=== PATIENT | female | born 1965 | race Caucasian/White ===

== ENCOUNTER → 2017-12-02 12:09 | Outpatient (CLI) | payer BC, SELFPAY ==
--- NOTE | 2017-12-02 12:13 | US_ITS ---
STUDY: RENAL ULTRASOUND - COMPLETE REASON FOR EXAM: Female, 52 years old. Atrophy of the right kidney. TECHNIQUE: Ultrasound evaluation of the kidneys was performed with real-time and static mendoza-scale imaging. COMPARISON: Comparison is made with prior examination dated April 29, 2016. FINDINGS: RIGHT KIDNEY: with moderate renal atrophy. The right kidney measures 5.8 cm x 2.9 cm x 2.5 cm. There is diffuse thinning of the renal cortex. The renal cortex measures 0.8 cm. There is no right renal mass or cyst. There are no right renal calculi. There is no right hydronephrosis. DISTAL RIGHT URETER: There is non-visualization of the distal right ureter. There is no demonstrated right ureterovesical junction calculus. There is no demonstrated right ureteral jet. LEFT KIDNEY: Normal location of the left kidney, which is normal in size. The left kidney measures 11.3 cm x 4.6 cm x 5.2 cm. There is a normal cortex of the left kidney. The renal cortex measures 2.0 cm. There is no left renal mass or cyst. There are no left renal calculi. There is no left hydronephrosis. DISTAL LEFT URETER: There is non-visualization of the distal left ureter. There is no demonstrated left ureterovesical junction calculus. There is no demonstrated left ureteral jet. BLADDER: The bladder is empty at the time of the examination. US/Kidney and Bladder IMPRESSION: Stable atrophy of the right kidney. The left kidney is unremarkable. Electronically Signed: Maurilio Cornejo MD at 13:47 EDT Tel [phone], Service support ,
== END ==
PROVIDERS: Visit Provider Urology
DX: N28.9 Disorder of kidney and ureter, unspecified (principal)
CPT/HCPCS: 76770

== ENCOUNTER → 2018-04-22 10:22 | Outpatient (CLI) | payer BC, SELFPAY ==
--- NOTE | 2018-04-22 10:32 | CT_ITS ---
STUDY: CT SOFT TISSUE NECK WITHOUT CONTRAST REASON FOR EXAM: Female, 53 years old. Lump on the left side of the neck. RADIATION DOSAGE (If Supplied By Facility): CTDIvol = ( 18.51 ) mGy, DLP = ( 568.65 ) mGycm TECHNIQUE: The patient was scanned in a multi-detector CT scanner. High resolution transaxial imaging was performed without the administration of intravenous contrast material. Sagittal and coronal images were reconstructed. Individualized dose optimization techniques were used for this CT. COMPARISON: None. FINDINGS: Normal bilateral parotid glands. Normal bilateral armament repairer spaces. Normal bilateral parapharyngeal spaces. Normal bilateral carotid spaces. Normal bilateral sublingual and submandibular glands and spaces. Normal visualized nasopharynx. Normal retropharyngeal space. Normal perivertebral space. Normal visualized bilateral faucial tonsils. The visualized tongue, tongue base and oropharynx are normal. There are minimally enlarged lymph nodes of the neck, with preservation of normal amol architecture, consistent with a reactive lymph hyperplasia. There is no demonstrated solid or cystic mass lesion. Normal epiglottis, bilateral vallecula and hypopharynx. The pre-epiglottic and paraglottic adipose spaces are normal. Normal visualized bilateral piriform sinuses, aryepiglottic folds, vocal cords, and arytenoid-cricoid articulations. Normal subglottic trachea. Normal bilateral lobes of the thyroid gland. Normal visualized pulmonary apices. Minimal mucosal thickening of the left ethmoid sinus. Mild degree of this space narrowing at the C6-C7 C7-T1 CT/Soft Tissue Neck without Contr IMPRESSION: No acute abnormality is seen. Electronically Signed: Maurilio Cornejo MD at 12:26 EDT Tel [phone], Service support ,
== END ==
DX: R22.1 Localized swelling, mass and lump, neck (principal)
CPT/HCPCS: 70490

== ENCOUNTER → 2018-06-18 08:52 | Outpatient (CLI) | payer BC, SELFPAY ==
--- NOTE | 2018-06-18 08:55 | BI_ITS ---
MAMMOGRAPHY - BILATERAL SCREENING REASON FOR EXAM: Female, 53 years old. Routine annual screening examination. PERTINENT HISTORY: Aunts with breast cancer. Bilateral breast implants. TECHNIQUE: Digital bilateral breast tano (3D mammographic acquisition) in the CC and MLO projections. 2-D mediolateral oblique (MLO) and craniocaudad (CC) views of both breasts were obtained. CAD: Full Field Digital Mammography with Computer Added Detection was performed. COMPARISON: Comparison is made with prior study dated February 17, 2017 and November 06, 2015. FINDINGS: Breast Composition: The breasts are heterogeneously dense, which may obscure small masses. There are no dominant masses or suspicious calcifications. Stable appearance of the bilateral breast implants. Stable appearance of the small bilateral benign appearing axillary lymph nodes. No other significant abnormalities are identified. There has been no significant change since the prior study. BI/SCREENING MAMM (CAD), BILAT IMPRESSION: Stable bilateral screening mammogram. Yearly follow-up mammogram recommended. (A) ASSESSMENT CATEGORY: BIRADS Category 2: Benign. A letter regarding these results will be sent to the patient by the facility within 30 days. Approximately 10% of breast cancers are not detected by mammography. A normal mammogram should not delay biopsy of a clinically suspicious abnormality. [id number] Electronically Signed: Maurilio Cornejo MD at 8:09 EST Tel [phone], Service support ,
== END ==
DX: Z12.31 Encounter for screening mammogram for malignant neoplasm of breast (principal)
CPT/HCPCS: 77063; 77067

== ENCOUNTER → 2019-01-12 | Outpatient (CLI) | payer BC, SELFPAY ==
[2019-01-20 17:00] LABS: HPV Reflexed? NOT INDICATED
== END | disposition home or self-care (01) ==
LOC: LABSPEC 15:24
PROVIDERS: Visit Provider Obstetrics & Gynecology
DX: Z12.4 Encounter for screening for malignant neoplasm of cervix (principal)
CPT/HCPCS: 88175; G0145

== ENCOUNTER → 2020-02-15 | Outpatient (CLI) | payer BC, SELFPAY ==
--- NOTE | 2020-02-15 13:46 | BI_ITS ---
MAMMOGRAPHY - BILATERAL SCREENING REASON FOR EXAM: Female, 55 years old. Routine annual screening examination. PERTINENT HISTORY: Aunts with breast cancer. TECHNIQUE: Digital bilateral breast david (3D mammographic acquisition) in the CC and MLO projections. 2-D mediolateral oblique (MLO) and craniocaudad (CC) views of both breasts were obtained. CAD: Full Field Digital Mammography with Computer Added Detection was performed. COMPARISON: Comparison is made with prior study dated 06-18-18 and 02-17-17. FINDINGS: Breast Composition: The breasts are heterogeneously dense, which may obscure small masses. There are no dominant masses or suspicious calcifications. Stable appearance of the bilateral breast implants. Stable small benign appearing bilateral axillary lymph nodes. No other significant abnormalities are identified. There has been no significant change since the prior study. BI/SCREEN MAMM (CAD) W/DAVID BILAT IMPRESSION: Stable bilateral screening mammogram. Yearly follow-up mammogram recommended. (A) ASSESSMENT CATEGORY: BIRADS Category 2: Benign. A letter regarding these results will be sent to the patient by the facility within 30 days. Approximately 10% of breast cancers are not detected by mammography. A normal mammogram should not delay biopsy of a clinically suspicious abnormality. [id number] Electronically Signed: Maurilio Cornejo, at 8:22 EDT , Service support ,
[2020-02-15 17:05] LABS: Probe Check PASS; Sample Adequacy Control PASS; Specimen Processing Control PASS; Trichomonas Vag DNA by PCR Negative (Negative)
[2020-02-15 17:23] LABS: Chlamydia Trachomatis by PCR Negative (Negative); Neisserai gonorrhoeae by PCR Negative (Negative); Probe Check PASS; Sample Adequacy Control PASS; Specimen Processing Control PASS
[2020-02-16 02:25] LABS: Rapid Plasmin Reagin (RPR) NONREACTIVE (NONREACTIVE)
[2020-02-16 10:15] LABS: HIV - WCH Non-Reactive (Nonreactive); Hepatitis C Antibody Non-Reactive (Nonreactive)
== END | disposition home or self-care (01) ==
LOC: OPBI 13:45 → LABSPEC 13:46
PROVIDERS: Referring Provider Obstetrics & Gynecology; Visit Provider Obstetrics & Gynecology
DX: Z12.31 Encounter for screening mammogram for malignant neoplasm of breast (principal); Z11.3 Encounter for screening for infections with a predominantly sexual mode of transmission
CPT/HCPCS: 77063; 77067; 86592; 86703; 86803; 87491; 87591; 87661

== ENCOUNTER → 2021-02-19 12:46 | Outpatient (CLI) | payer BC, SELFPAY ==
--- NOTE | 2021-02-19 12:53 | BI_ITS ---
MAMMOGRAPHY - BILATERAL SCREENING REASON FOR EXAM: Female, 56 years old. Routine annual screening examination. PERTINENT HISTORY: Aunts with breast cancer. TECHNIQUE: Digital bilateral breast david (3D mammographic acquisition) in the CC and MLO projections. 2-D mediolateral oblique (MLO) and craniocaudad (CC) views of both breasts were obtained. CAD: Full Field Digital Mammography with Computer Added Detection was performed. COMPARISON: Comparison is made with prior study dated 02/15/2020 and 06/18/2018. FINDINGS: Breast Composition: The breasts are heterogeneously dense, which may obscure small masses. There are no dominant masses or suspicious calcifications. Stable appearance of the bilateral breast implants. Stable small benign-appearing bilateral axillary lymph nodes. No other significant abnormalities are identified. There has been no significant change since the prior study. BI/SCRN MAMM (CAD)W/DAVID BILAT IMPRESSION: Stable bilateral screening mammogram. Yearly follow-up mammogram recommended. (A) ASSESSMENT CATEGORY: BIRADS Category 2: Benign. A letter regarding these results will be sent to the patient by the facility within 30 days. Approximately 10% of breast cancers are not detected by mammography. A normal mammogram should not delay biopsy of a clinically suspicious abnormality. [id number] Electronically Signed: Maurilio Cornejo MD at 14:12 EDT , Service support ,
== END ==
PROVIDERS: Visit Provider Obstetrics & Gynecology
DX: Z12.31 Encounter for screening mammogram for malignant neoplasm of breast (principal); Z80.3 Family history of malignant neoplasm of breast
CPT/HCPCS: 77063; 77067

== ENCOUNTER → 2021-02-19 | Outpatient (CLI) | payer BC, SELFPAY ==
[2021-02-22 03:07] LABS: Chlamydia By Nucleic Acid AMP Negative (Negative)
[2021-02-22 10:21] LABS: Gonococcus By Nucleic Acid AMP Negative (Negative)
== END | disposition home or self-care (01) ==
LOC: LABSPEC 14:33
PROVIDERS: Visit Provider Obstetrics & Gynecology
DX: Z12.4 Encounter for screening for malignant neoplasm of cervix (principal); Z11.3 Encounter for screening for infections with a predominantly sexual mode of transmission
CPT/HCPCS: 87491; 87591

== ENCOUNTER → 2024-05-18 | Outpatient (CLI) | payer OTHER, SELFPAY ==
--- NOTE | 2024-05-18 14:02 | BI_ITS ---
MAMMOGRAPHY - BILATERAL SCREENING REASON FOR EXAM: Female, 59 years old. Routine annual screening examination. PERTINENT HISTORY: Aunts with breast cancer. TECHNIQUE: Digital bilateral breast david (3D mammographic acquisition) in the CC and MLO projections. 2-D mediolateral oblique (MLO) and craniocaudad (CC) views of both breasts were obtained. CAD: Full Field Digital Mammography with Computer Added Detection was performed. COMPARISON: Comparison is made with prior outside examination dated June 03, 2023 and February 19, 2021. FINDINGS: Breast Composition: The breasts are heterogeneously dense, which may obscure small masses. On the mediolateral oblique view of the right breast, there is a 6.1 mm x 5.7 mm focal area of architectural distortion. This is not well seen on the craniocaudad projection. The patient will be recalled for additional views including 90 degree lateral and compression spot views. The previously seen bilateral breast implants have been removed. No other significant abnormalities are identified. BI/SCRN MAMM (CAD)W/DAVID BILAT IMPRESSION: Focal area of architectural distortion in the right breast as described. The patient will be recalled for additional views. Recall Side: Right Breast ASSESSMENT CATEGORY: BIRADS Category 0: Incomplete. Need additional imaging evaluation. A letter regarding these results will be sent to the patient by the facility within 30 days. Approximately 10% of breast cancers are not detected by mammography. A normal mammogram should not delay biopsy of a clinically suspicious abnormality. [id number] Electronically Signed: Maurilio Cornejo MD at 15:15 EDT ,
--- OUTSIDE RECORDS SUMMARY | 2024-05-18 17:13 | XMS RPT_ITS | CCD ---
Author Organization [facility] Inform ion Partnership [facility] Care Team Providers Care Health Facilities Surveyor Name Role Phone Victor M Harperet Martin Unavailable Unavailable Rad, Christophe E Unavailable Unavailable Rad, Christophe E Primary Care Provider Rad, Christophe E Primary Care Provider [phone] Rad, Christophe Edward Primary Care Provider Haus, Sanford P Primary Care Provider Rad DELVALLE, Christophe Edward Primary Care Provider Edy Garcia MD Unavailable EDY GARCIA Admitting UnavailEDY [place] Referring Unavailabl e RAD, CHRISTOPHE EDWARD Primary Care Unavailable TINO FAN Attending Unavaila ble RAD, CHRISTOPHE EDWARD Primary Care Unavailable FAIZAN NOLEN Attending Unavailabl e EDY GARCIA Referring Unavailabl e RAD, CHRISTOPHE EDWARD Primary Care Unavailable Haus DO, Sanford P Primary Care Provider Haus, Sanford P Unavailable Unavailable Unavailable HAUS, SANFORD P Attending Unavailable HAUS, SANFORD P Primary Care Unavailable SELF, SELF Referring Unavailable Haus DO, Sanford P Primary Care Provider KENA ANDERSON JR, JR. Referring Unavailab KENA Reeves JR, JR. Attending Unavailab le HAUS, SANFORD P Primary Care Unavailable Allergies Allergy Classification Reported Allergen(s) Allergy Type Date of Onset Reaction(s) Facility Opioid Agonists (5 sources) Meperidine; Translations: [MEPERIDINE] Drug Allergy 8 Unknown, Bradycardia [facility] (1 source) No Known Allergies; Translations: [No Known Allergies] Propensity to adverse reactions to drug (disorder) [facility] (1 source) No Known Medication Allergies; Translations: [No Known Medication Allergies] Propensity to adverse reactions to drug (disorder) [facility] (10 sources) Meperidine Drug Allergy 8 Bradycardia, Unknown [facility] Medications Current Medications Medication Drug Class(es) Dates Sig (Normalized) Sig (Original) amoxicillin 875 mg / clavulanate 125 mg oral tablet (4 sources) Penicillin-class Antibacterial Start: 01-17-2020 End: 12-21-2020 amoxicillin-clavu lanate (AUGMENTIN) 875-125 mg per tablet Start: 01-17-2020 End: 01-24-2020 take 1 tablet by mouth twice daily at mealtime amoxicillin-clavulanate 875-125 MG table t Take 1 tablet by mouth 2 times daily with meals for 7 days. 14 tablet 0 01/17/2020 01/24/2020 Active 24 hr buPROPion hydrochloride 150 mg extended release oral tablet (18 sources) Aminoketone Start: 03-30-2024 take 1 tablet by mouth once daily in the morning buPROPion 150 MG tablet XL Take 1 tablet by mouth daily every morning. 90 tablet 3 03/30/2024 Active Start: 01-28-2022 End: 03-30-2024 buPROPion 150 MG tablet SR T SANDI 1 TABLET DAILY 90 tablet 3 01/28/2022 03/30/2024 Discontinued Start: 04-08-2018 End: 01-22-2021 take 1 tablet by mouth once daily buPROPion 150 MG tablet SR Take 1 tablet by mouth daily. 90 tablet 3 01/22/2021 Active Wellbutrin TABS Quantity: 0 Refills: 0 Ordered: 25-Apr-2020 DO Active busPIRone hydrochloride 7.5 mg oral tablet (15 sources) Start: 03-30-2024 take 1 tablet by mouth once daily as needed for anxiety busPIRone HCl 7.5 MG tablet Take 1 tablet by mouth daily as needed for Anxiety. 90 tablet 3 03/30/2024 Active Start: 06-24-2021 End: 03-30-2024 busPIRone HCl 7.5 MG tablet TAKE 1 TABLET EVERY 12 HOURS NEEDED (PATIENT NEEDS TO MAKE AN APPOINTMENT WITH DR LEROY TO RECEIVE MORE REFILLS) 180 tablet 3 06/24/2021 03/30/2024 Discontinued (Reorder) Start: 06-27-2020 busPIRone HCl 7.5 MG tablet TAKE 1 TABLET EVERY 12 HOURS NEEDED (PATIENT NEEDS TO MAKE AN APPOINTMENT WITH DR LEROY TO RECEIVE MORE REFILLS) 180 tablet 3 06/27/2020 Active Start: 04-08-2018 End: 06-25-2020 busPIRone (BUSPAR) 7.5 MG ta blet TAKE 1 TABLET EVERY 12 HOURS NEEDED 0 04/04/2019 Active FLUoxetine 10 mg oral capsule (10 sources) Serotonin Reuptake Inhibitor Start: 06-03-2021 End: 03-30-2024 take 1 capsule by mouth once daily FLUoxetine 10 MG capsule Indications: PRATIK (generalized anxiety disorder) Take 1 capsule by mouth daily. 90 capsule 3 03/30/2024 Active Start: 11-08-2020 End: 01-22-2021 take 1 capsule by mouth once daily FLUoxetine 10 MG capsule Indications: PRATIK (generalized anxiety disorder) , Depressive disorder Take 1 capsule by mouth daily. 90 capsule 1 01/22/2021 Active Start: 06-12-2020 End: 06-25-2020 take 1 capsule by mouth once daily FLUoxetine 10 MG capsule Indications: PRATIK (generalized anxiety disorder) , Depressive disorder Take 1 capsule by mouth daily. 90 capsule 3 06/25/2020 Active Start: 03-16-2020 take 1 capsule by [facility] once daily FLUoxetine 10 MG capsule Indications: PRATIK (generalized anxiety disorder) , Depressive disorder Take 1 capsule by mouth daily. 90 capsule 0 03/16/2020 Active PROzac CAPS Christopher tity: 0 Refills: 0 Ordered: 25-Apr-2020 DO Active linaclotide 0.072 mg oral capsule (2 sources) Guanylate Cyclase-C Agonist Start: 03-30-2024 take 1 capsule by mouth once daily as needed linaCLOtide (Linzess) 72 MCG capsule Take 1 capsule by mouth daily as needed. 30 capsule 3 03/30/2024 Active MISC NATURAL PRODUCTS PO (9 sources) MISC NATURAL PRODUCTS PO OxyBowel 1 by mouth every day. Active MISC NATURAL PRO DUCTS PO OxyBowel 1 by mouth every day. 0 Active omeprazole 20 mg delayed release oral capsule (14 sources) Proton Pump Inhibitor Start: 06-03-2018 End: 03-30-2024 take 1 capsule by mouth at bedtime omeprazole [address] capsule Take 1 capsule by mouth at bedtime. 90 capsule 3 03/30/2024 Active phenazopyridine hydrochloride 200 mg oral tablet (1 source) Start: 03-27-2021 take 1 tablet by mouth three times daily as needed for pain Pyridium 200 MG Oral Tablet TAKE 1 TABLET 3 TIMES DAILY NEEDED FOR PAIN. Quantity: 30 Refills: 2 Ordered: 27-Mar-2021 Harpreet Dow II, MD Start : 27-Mar-2021 Active Start: 03-27-2021 take 1 tablet by an three times daily as needed for pain Pyridium 200 MG Oral Tablet TAKE 1 TABLET 3 TIMES DAILY NEEDED FOR PAIN. Quantity: 30 Refills: 2 Ordered: 27-Mar-2021 Harpreet Dow II, MD Start : 27-Mar-2021 Active tretinoin 0.25 mg/ml topical cream (16 sources) Retinoid End: 12-21-2020 tretinoin (RETIN-A) 0.025 % Cream Reported on 09/08/2016 Active Completed/Discontinued Medications Medication Drug Class(es) Dates Sig (Normalized) Sig (Original) Calcium (5 sources) Phosphate Binder, Calcium End: 03-16-2020 CALCIUM PO 1 by mouth every day. 0 03/16/2020 Discontinued (Other (suppress cancel msg)) CALCIUM PO 1 by mouth every day. 0 Active cholecalciferol 2000 unt oral tablet (5 sources) Vitamin D End: 03-16-2020 Cholecalciferol (VITAMIN D3) 2000 units Tab take 2,000 Units by mouth daily.. 0 03/16/2020 Discontinued (Other (suppress cancel msg)) ciprofloxacin 250 mg oral tablet (2 sources) Quinolone Antimicrobial Start: 04-25-2020 take 1 tablet by mouth twice daily Ciprofloxacin HCl - 250 MG Oral Tablet 1 tab bid x 7 days Quantity: 14 Refills: 3 Ordered: 27-Mar-2021 Harpreet Dow II, MD Start : 25-Apr-2020 Active clobetasol propionate 0.5 mg/ml topical cream (5 sources) Corticosteroid Start: 03-16-2020 End: 03-30-2024 clobetasol 0.05 % Cream Apply 1 Application topically 2 times daily. For 2 weeks 60 g 1 01/22/2021 03/30/2024 Discontinued desloratadine 5 mg oral tablet (5 sources) Histamine-1 Receptor Antagonist Start: 01-17-2020 End: 03-30-2024 take 1 tablet by mouth once daily desloratadine (Clarinex) 5 MG tablet Take 1 tablet by mouth daily. 10 tablet 01/17/2020 03/30/2024 Discontinued desoximetasone 2.5 mg/ml topical cream (2 sources) Corticosteroid End: 06-25-2020 desoximetasone 0.25 % Cream Apply topically 2 times daily. 0 06/25/2020 Discontinued (Other (suppress cancel msg)) estradiol 0.1 mg/ml vaginal cream (1 source) Estrogen Start: 02-19-2021 Estradiol 0.1 MG/GM Vaginal Cream Quantity: 42 Refills: 0 Ordered: 19-Feb-2021 DO Start : 19-Feb-2021 Active Multiple Vitamin (MULTIVITAMIN) Cap (6 sources) End: 06-25-2020 Multiple Vitamin (MULTIVITAMIN) Cap take 1 capsule by mouth daily.. 0 06/25/2020 Discontinued (Other (suppress cancel msg)) Multiple Vitamin (MULTIVITAMIN) Cap take 1 capsule by mouth daily.. 0 Active [place] 3-6-9 Fatty Acids (OME GA 3-6-9 COMPLEX PO) (5 sources) End: 03-16-2020 [place] 3-6-9 Fatty Acids (OME GA 3-6-9 COMPLEX PO) 1 by mouth every day. 0 03/16/2020 Discontinued (Other (suppress cancel msg)) [place] 3-6-9 Fatt y Acids (OMEGA 3-6-9 COMPLEX PO) 1 by mouth every day. 0 Active Problems Active Problems Problem Classification Problem Date Documented Da te Episodic/Chronic Anxiety disorders (19 sources) Generalized anxiety disorder; Translations: [Mixed anxiety and depressive disorder] Onset: 7 08-19-2016 Chronic Disorders of lipid metabolism (15 sources) Mixed hyperlipidemia; Translations: [Mixed hyperlipidemia] Onset: 1 08-19-2016 Chronic Esophageal disorders (20 sources) Gastroesophageal reflux disease; Translations: [Stricture of esophagus] Onset: 8 08-19-2016 Chronic Genitourinary congenital anomalies (13 sources) Renal agenesis; Translations: [Renal agenesis, unspecified] Onset: 7 09-08-2016 Chronic Genitourinary symptoms and ill-defined conditions (1 source) Female stress incontinence; Translations: [Stress incontinence, female] Chronic Genitourinary symptoms and ill-defined conditions (3 sources) Dysuria; Translations: [Dysuria] Episodic Mood disorders (16 sources) Depressive disorder; Translations: [Major depressive disorder, single episode, unspecified] Onset: 0 08-19-2016 Chronic Mood disorders (2 sources) Mood disorders; Translations: [Depression, unspecified] Onset: 7 Nephritis; nephrosis; renal sclerosis (1 source) Atrophy of kidney; Translations: [Renal sclerosis, unspecified] Chronic Nutritional deficiencies (2 sources) Vitamin D deficiency; Translations: [Vitamin D deficiency, unspecified] Chronic Other ear and sense organ disorders (1 source) Otalgia of right ear; Translations: [Right ear pain] Other gastrointestinal disorders (2 sources) Other constipation; Translations: [Other constipation] Onset: 4 Episodic Other gastrointestinal disorders (3 sources) Chronic constipation; Translations: [Other constipation] Onset: 4 03-30-2024 Episodic Other inflammatory condition of skin (1 source) Psoriasis; Translations: [Psoriasis] Chronic Other screening for suspected conditions (not mental disorders or infectious disease) (17 sources) Abnormal renal function; Translations: [Disorder of kidney and ureter, unspecified] Onset: 7 09-08-2016 Episodic Other skin disorders (1 source) Intrinsic aging of skin; Translations: [Other skin changes] Episodic Other upper respiratory disease (1 source) Catarrhal nasal discharge; Translations: [Coryza] Episodic Other upper respiratory disease (1 source) Pain in throat; Translations: [Throat pain in adult] Episodic Other upper respiratory infections (2 sources) Acute pharyngitis; Translations: [Sore throat symptom] Episodic Prolapse of female genital organs (1 source) Instability of pelvic floor; 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 Residual codes; unclassified (1 source) Needs influenza immunization; Translations: [Flu vaccine need] Episodic Substance-related disorders (1 source) Nicotine dependence; Translations: [Cigarette nicotine dependence, uncomplicated] Chronic Substance-related disorders (1 source) Episodic dependence on cigarette smoking; Translations: [Episodic cigarette smoking dependence] Unclassified (1 source) Evaluation finding; Translations: [Covid-19 Virus not Detected] Unclassified (1 source) Patient encounter status; Translations: [Encounter to establish care with new doctor] Urinary tract infections (1 source) Recurrent urinary tract infection; Translations: [Urinary tract infection, site not specified] Episodic Varicose veins of lower extremity (1 source) Varicose veins of lower extremity; Translations: [Varicose veins of bilateral lower extremities with pain] Episodic Past or Other Problems Problem Classification Problem Date Documented Da te Episodic/Chronic Other gastrointestinal disorders (12 sources) Esophageal dysphagia; Translations: [Dysphagia, unspecified] Onset: 04-22-2018 04-22-2018 Episodic Results Test Name Value Interpretation Reference Range Facility SCREENING COLONOSCOPYon 04-27 [facility] Gastroenterology Patient Name: Silva Fuentes Procedure Date: 05/16/2024 8:10 AM Date of : 1965 Admit Type: Outpatient Age: 59 Room: Procedure Room #2 Gender: Female Note Status: Finalized Attending MD: Kena Anderson JR, DO, [id number] Instrument Name: [id number] Procedure: Colonoscopy Attending Participation: I personally performed the entire procedure. Indications: Screening for colorectal malignant neoplasm Providers: Kena Anderson JR, DO Referring MD: Sanford Garibay DO Complications: No immediate complications. Estimated Blood Loss: Estimated blood loss: none. Medicines: See the Anesthesia note for documentation of the administered medications Procedure: Pre-Anesthesia Assessment: - Prior to the procedure, a History and Physical was performed, and patient medications and allergies were reviewed. The patient is competent. The risks and benefits of the procedure and the sedation options and risks were discussed with the patient. All questions were answered and informed consent was obtained. Patient identification and proposed procedure were verified by the physician in the pre-procedure area. Mental Status Examination: alert and oriented. Airway Examination: normal oropharyngeal airway and neck mobility. Respiratory Examination: clear to auscultation. CV Examination: normal. Prophylactic Antibiotics: The patient does not require prophylactic antibiotics. Prior Anticoagulants: The patient has taken no anticoagulant or antiplatelet agents. ASA Grade Assessment: II - A patient with mild systemic disease. After reviewing the risks and benefits, the patient was deemed in satisfactory condition to undergo the procedure. The anesthesia plan was to use moderate sedation / analgesia (conscious sedation). Immediately prior to administration of medications, the patient was re-assessed for adequacy to receive sedatives. The heart rate, respiratory rate, oxygen saturations, blood pressure, adequacy of pulmonary ventilation, and response to care were monitored throughout the procedure. The physical status of the patient was re-assessed after the procedure. After I obtained informed consent, the scope was passed under direct vision. Throughout the procedure, the patient's blood pressure, pulse, and oxygen saturations were monitored continuously. CO2 was used. The Colonoscope was introduced through the anus and advanced to the cecum, identified by appendiceal orifice and ileocecal valve. The colonoscopy was performed without difficulty. The patient tolerated the procedure well. The quality of the bowel preparation was good. The ileocecal valve, appendiceal orifice, and rectum were photographed. Findings: The perianal and digital rectal examinations were normal. The colon (entire examined portion) appeared normal. Impression: - The entire examined colon is normal. - No specimens collected. Recommendation: - Discharge patient to home (ambulatory). - Resume previous diet. - Repeat colonoscopy in 10 years for surveillance. Procedure Code(s): --- Professional --- G0121, Colorectal cancer screening; colonoscopy on individual not meeting criteria for high risk Diagnosis Code(s): --- Professional --- Z12.11, Encounter for screening for malignant neoplasm of colon CPT copyright 2022 [employer]. All rights reserved. The codes documented in this report are preliminary and upon broadcast technician review may be revised to meet current compliance requirements. Dr. Kena Anderson Jr, D.O. Kena Anderson JR, DO 05/16/2024 8:39:28 AM This report has been signed electronically. Number of Addenda: 0 Note Ini (more content not included)... LAB, [facility] Radiology Study observation (narrative) [facility] IO UA (automated w/o microsc opy)on 03-27-2021 Protein (U) [Mass/Vol] Negative YD-Eyjidjj-Yqkn and Work Phone: IO UA (automated w/o microscopy) Negative XI-Nsydyyl-Vlfl and Work Phone: IO UA (automated w/o microscopy) Normal (0.2-1.0 mg/dl) IF-Ffvpmok-Zokt and Work Phone: IO UA (automated w/o microscopy) 6.0 1 FI-Yttcuee-Ljiq and Work Phone: IO UA (automated w/o microscopy) (+)small - 15 QE-Niwmmnl-Bkzs and Work Phone: IO UA (automated w/o microscopy) 1.015 1 HS-Ybdxgau-Ixqa and Work Phone: IO UA (automated w/o microscopy) Clear OQ-Mbtleiz-Zqlh and Work Phone: IO UA (automated w/o microscopy) Yellow GP-Xyzqhxc-Pwsx and Work Phone: Office Visit (Urology)on Follow-up visit Diagnoses/Problems Assessed Nocturia (788.43) (R35.1) OSMIN (stress urinary incontinence, female) (625.6) (N39.3) Patient Discussion/Summary Past KUB reviewed Stone prevention discussed. Diet reviewed. Discussed fluid intake Treatment options for LUTS reviewed Discussed timed voiding. Discussed fluid and caffeine intake Pelvic floor exercises discussed. Pros/cons of PT discussed.. Questions answered Lifestyle change to help prevent UTIs discussed. Encouraged fluid intake. Cipro Self start Rx given F/U 1 year with renal U/S Chief Complaint 1 YEAR F/U History of Present IllnessPatient is here for yearly f/u for hx of UTI'S. No recent infections. She has Pyridium and Cipro on hand which is helpful. Chronic LUT'S sx are mild and stable. Denies urgency and frequency. Denies dysuria. Denies hematuria. Nocturia x1. No medication for LUT'S. Hx of congenital atrophied kidney. No recent imaging. chronic hx of microhematuria. she did have a negative work up in the past...last cysto was at least 5 years ago. Review of Systems Constitutional: No fever, No chills Eye: negative Respiratory: No shortness of breath, No cough. Cardiovascular: No chest pain Gastrointestinal: No nausea Genitourinary: Negative except as documented in history of present illness. Hematology/Lymphatics : Patient denies being on blood thinners.. Endocrine: Negative. Immunologic: Not immunocompromised. Musculoskeletal: negative Integumentary: Negative. Neurologic: Alert and oriented X4. Psychiatric: Negative. Active Problems Problems Atrophic kidney (587) (N26.1) Dysuria (788.1) (R30.0) Frequent UTI (599.0) (N39.0) Nocturia (788.43) (R35.1) Pelvic floor weakness in female (618.89) (N81.89) OSMIN (stress urinary incontinence, female) (625.6) (N39.3) Surgical History Problems History of Breast augmentation History of section History of Dermatological surgery History of Hysterectomy Family History Sibling Family history of hypertension (V17.49) (Z82.49) Social History Problems Current some day smoker (305.1) (F17.200) Allergies Medication No Known Drug Allergies Recorded By: Kim Nunez; 12/02/2019 10:57:42 AM Current Meds Medication NameInstruction Ciprofloxacin HCl - 250 MG Oral Tablet1 tab bid x 7 days Estradiol 0.1 MG/GM Vaginal Cream PROzac CAPS Wellbutrin TABS Vitals Vital Signs Recorded: 27Mar2021 09:25AM Heart Rate70 Wdoxyvjl292 Wnbwqfxjl68 Height5 ft 4 in Mccvfi549 lb 8 oz BMI Jxvrypyywh07.12 kg/m2 BSA Calculated1.85 Tobacco Usea) Yes Patient encouraged to stop using tobacco productsYes Fall Screeninga) No falls within the last year Physical Exam A/O x 3 in No apparent distress Constitutional: General appearance normal Respiratory: Respiratory effort is normal Gastrointestinal:Abdo men is not tender Genitourinary: Kidneys: Not palpable Bilaterally Bladder: Not palpable or tender Signatures Electronically signed by : Harpreet Dow II, MD; Mar 27 2021 9:33AM EST (Author) Normal Appointuit Tobacco Screening.on 021 Fall risk assessment a) No falls within the last year GF-Tcqqwxm-Zenz and Work Phone: Tobacco use status [facility] a) Yes JS-Zymcfcu-Akaf and Work Phone: Tobacco Screening. Yes MP-Uro logy-Ashl and Work Phone: COVID-19, MOLECULARon 2020 SARS-CoV-2 (COVID-19) RNA TATYANA+probe Ql (Unsp spec) Not detected Normal Not Detected [facility] Comment on above: Order Comment: : COV ID-19 Lab Test Only (OP in UTM) Result Comment: This test was performed under the FDA's Emergency Use Authorization (EUA). Testing was performed using the Chaya SARS-CoV-2 RT-PCR assay on the [employer] Chaya 6800 System. This test has not been approved for use in asymptomatic patients and its performance in this patient population has not been evaluated. Negative results do not rule out the presence of SARS-CoV-2/COVID-19. Fact sheets for this EUA can be found at the following links: For Healthcare Providers: https://www.[place].gov/media/966465/download For Patients: https://www.[place].gov/Triptrotting/802319/download Performed By: #### L [id number] #### [facility] [address] [place] [address] Ross Guerrero M.D. [id number] Office Visit (Urology)on Follow-up visit Diagnoses/Problems Assessed Atrophic kidney (587) (N26.1) Nocturia (788.43) (R35.1) OSMIN (stress urinary incontinence, female) (625.6) (N39.3) Patient Discussion/Summary Treatment options for LUTS reviewed Pelvic floor exercises discussed. Pros/cons of PT discussed.. Questions answered Lifestyle change to help prevent UTIs discussed. Encouraged fluid intake. Self start Rx for Cipro given Past U/S reviewed F/u 1 year Chief Complaint 4 mo f/u History of Present Illnesspt is here for 4 mo f/u with Hx atrophied kidney, congenital..No recent imgaging. U/S last year showed no change...No F/C..Chronic LUTS sx are mild and stable...denies urgency or frequency...No dysuria..No gross hematuria...patient does have chronic hx of microhematuria. she did have a negative work up in the past...last cysto was at least 5 years ago...Nocturia 1x. OSMIN is mild.pt did pt and states it helped incontinence. Hx of UTI'S. Pt. keeps self start antbx at home. Review of Systems Constitutional: No fever, No chills Eye: negative Respiratory: No shortness of breath, No cough. Cardiovascular: No chest pain Gastrointestinal: No nausea Genitourinary: Negative except as documented in history of present illness. Hematology/Lymphatics : Patient denies being on blood thinners.. Endocrine: Negative. Immunologic: Not immunocompromised. Musculoskeletal: negative Integumentary: Negative. Neurologic: Alert and oriented X4. Psychiatric: Negative. Active Problems Problems Atrophic kidney (587) (N26.1) Dysuria (788.1) (R30.0) Pelvic floor weakness in female (618.89) (N81.89) Surgical History Problems History of Breast augmentation History of section History of Dermatological surgery History of Hysterectomy Family History Sibling Family history of hypertension (V17.49) (Z82.49) Social History Problems Current some day smoker (305.1) (F17.200) Allergies Medication No Known Drug Allergies Recorded By: Kim Nunez; 12/02/2019 10:57:42 AM Current Meds Medication NameInstruction PROzac CAPS Wellbutrin TABS Vitals Vital Signs Recorded: [id number] 07:46AM Heart Rate79 Coprdpgw496 Odssujtwb14 Height5 ft 4 in Vcfxjn644 lb 0.4 oz BMI Qclpsqmiyb67.64 BSA Calculated1.78 Tobacco Usea) Yes Patient encouraged to stop using tobacco productsYes Fall Screeninga) No falls within the last year Physical Exam A/O x 3 in No apparent distress Constitutional: General appearance normal Respiratory: Respiratory effort is normal Gastrointestinal:Abdo men is not tender Genitourinary: Kidneys: Not palpable Bilaterally Bladder: Not palpable or tender Signatures Electronically signed by : Harpreet Dow II, MD; Apr 25 2020 8:04AM EST (Author) Normal Touchworks CBC, EDIF, PLATELETon 2019 ABSOLUTE BASOPHIL COUNT 0.1 10*3/uL 0 - 0.2 10*3/uL [facility] Basophils/100 WBC (Bld) 0.9 % 0 - 2 % [facility] Differential cell count method Nom (Bld) AUTO DIFF % [facility] Eosinophils (Bld) [#/Vol] 0.10 10*3/uL 0 - 0.7 10*3/uL [facility] Eosinophils/100 WBC (Bld) 1.6 % 0 - 11 % [facility] [facility] Erythrocyte distribution width (RBC) [Ratio] 13.5 % 11.5 - 14.5 % [facility] Hematocrit (Bld) [Volume fraction] 43.5 % 36 - 48 % [facility] Hemoglobin (Bld) [Mass/Vol] 14.7 g/dL [facility] Lymphocytes (Bld) [#/Vol] 2.90 10*3/uL 1.2 - 3.4 10*3/uL [facility] Lymphocytes/100 WBC (Bld) 33.4 % 20 - 55 % [facility] MCH (RBC) [Entitic mass] 30.7 pg 26 - 35 PG [facility] MCHC (RBC) [Mass/Vol] 33.8 g/dL [facility] MCV (RBC) [Entitic vol] 90.9 fL [facility] Monocytes (Bld) [#/Vol] 0.6 10*3/uL 0 - 0.7 10*3/uL [facility] Monocytes/100 WBC (Bld) 6.7 % 0 - 10 % [facility] Neutrophils (Bld) [#/Vol] 5.0 10*3/uL 1.4 - 6.5 10*3/uL [facility] Neutrophils/100 WBC (Bld) 57.4 % 37 - 75 % [facility] Platelet mean volume (Bld) [Entitic vol] 9.3 fL [facility] Platelets (Bld) [#/Vol] 290 10*3/uL 130 - 400 10*3/uL [facility] RBC (Bld) [#/Vol] 4.79 10*6/uL 4 - 5.4 10*6/uL [facility] WBC (Bld) [#/Vol] 8.7 10*3/uL 3.6 - 11 10*3/uL [facility] COMPREHENSIVE METABOLIC PANE Guerrero 03-16-2020 Albumin [Mass/Vol] 4.3 G/dl 3.5 - 5 G/dl [facility] Albumin/Globulin [Mass ratio] 1.3 {ratio} [facility] ALP [Catalytic activity/Vol] 76 U/L [facility] ALT [Catalytic activity/Vol] 14 U/L [facility] AST [Catalytic activity/Vol] 17 U/L [facility] Bilirubin [Mass/Vol] 0.6 mg/dL [facility] Calcium [Mass/Vol] 9.6 mg/dL [facility] Chloride [Moles/Vol] 107 mmol/L [facility] CO2 [Moles/Vol] 24 mmol/L [facility] Creatinine [Mass/Vol] 0.86 mg/dL [facility] GFR/1.73 sq M predicted among blacks MDRD (S/P/Bld) [Vol rate/Area] mL/min/{1.73_m2} ml/min/1.73sq. m [facility] GFR/1.73 sq M predicted among non-blacks MDRD (S/P/Bld) [Vol rate/Area] Average GFR for 50-59 years old = 93. [facility] Comment on above: Chronic Kidney disea se, GFR = <60. Kidney failure, GFR = <15. The GFR estimate is not adjusted for extreme body surface area or acute process, nor has it been validated for women or ethnic groups other than and . GFR/1.73 sq M predicted among non-blacks MDRD (S/P/Bld) [Vol rate/Area] mL/min/{1.73_m2} ml/min/1.73sq. m [facility] Glucose post fast [Mass/Vol] 93 mg/dL [facility] Comment on above: NORMAL <100 mg/dL PREDIABETES 101-126 mg/dL DIABETES 126 mg/dL or higher Potassium [Moles/Vol] 4.4 mmol/L [facility] Protein [Mass/Vol] 7.7 g/dL [facility] Sodium [Moles/Vol] 139 mmol/L [facility] Urea nitrogen [Mass/Vol] 20 mg/dL [facility] LIPID PANEL W CALCULATED LDL on 03-16-2020 Cholesterol [Mass/Vol] 173 mg/dL [facility] Cholesterol in HDL [Mass/Vol] 42 mg/dL [facility] Cholesterol in LDL [Mass/Vol] 117 mg/dL High [facility] Cholesterol in VLDL [Mass/Vol] 14 mg/dL [facility] Cholesterol.total/Ch olesterol in HDL [Mass ratio] 4.12 {ratio} RATIO [facility] Comment on above: RISK TOTAL/HDL RATIO MEN WOMEN 1/2 AVERAGE 3.43 3.27 AVERAGE 4.97 4.44 2X AVERAGE 9.55 7.05 3X AVERAGE 23.99 11.04 Interpretation and review of laboratory results Abnormal [facility] Triglyceride [Mass/Vol] 70 mg/dL <150 MG/DL [facility] TSH W/FT4 REFLEXon 0 TSH Qn 0.851 m[IU]/L [facility] COVID-19, Molecularon 2019 Interpretation and review of laboratory results Normal [facility] SARS-CoV-2 Not Detected Not Detected [facility] Comment on above: This test was perfor med under the FDA's Emergency Use Authorization (EUA). Testing was performed using the [employer] ID NOW COVID-19 assay on the ID NOW platform. This test has not been approved for use in asymptomatic patients and its performance in this patient population has not been evaluated. Negative results do not rule out the presence of SARS-CoV-2/COVID-19. Fact sheets for the EUA can be found at the following links: For Healthcare Providers: https://www.fda.gov/media/403525/download For Patients: https://www.fda.gov/media/571101/download CBC, EDIF, PLATELETon 2019 ABSOLUTE BASOPHIL COUNT 0.1 10*3/uL 0 - 0.2 10*3/uL [facility] Basophils/100 WBC (Bld) 0.4 % 0 - 2 % [facility] Differential cell count method Nom (Bld) AUTO DIFF % [facility] Eosinophils (Bld) [#/Vol] 0.20 10*3/uL 0 - 0.7 10*3/uL [facility] Eosinophils/100 WBC (Bld) 0.9 % 0 - 11 % [facility] Erythrocyte distribution width (RBC) [Ratio] 13.0 % 11.5 - 14.5 % [facility] Hematocrit (Bld) [Volume fraction] 42.4 % 36 - 48 % [facility] Hemoglobin (Bld) [Mass/Vol] 14.0 g/dL [facility] Interpretation and review of laboratory results Abnormal [facility] Lymphocytes (Bld) [#/Vol] 2.70 10*3/uL 1.2 - 3.4 10*3/uL [facility] Lymphocytes/100 WBC (Bld) 15.5 % Low 20 - 55 % [employer] MCH (RBC) [Entitic mass] 30.1 pg 26 - 35 PG [employer] MCHC (RBC) [Mass/Vol] 33.1 g/dL [facility] MCV (RBC) [Entitic vol] 91.0 fL [facility] Monocytes (Bld) [#/Vol] 0.8 10*3/uL High 0 - 0.7 10*3/uL [facility] Monocytes/100 WBC (Bld) 4.8 % 0 - 10 % [facility] Neutrophils (Bld) [#/Vol] 13.5 10*3/uL High 1.4 - 6.5 10*3/uL [facility] [facility] Neutrophils/100 WBC (Bld) 78.4 % High 37 - 75 % [employer] Platelet mean volume (Bld) [Entitic vol] 10.6 fL [employer] Platelets (Bld) [#/Vol] 205 10*3/uL 130 - 400 10*3/uL [facility] RBC (Bld) [#/Vol] 4.66 10*6/uL 4 - 5.4 10*6/uL [facility] WBC (Bld) [#/Vol] 17.2 10*3/uL High 3.6 - 11 10*3/uL [employer] ABDOMEN AP VIEWon 12-05-2019 ABDOMEN AP VIEW Patient Name: SILVA FUENTES STUDY: ABDOMEN AP VIEW; 12/05/2019 9:12 am INDICATION: flank pain. COMPARISON: None. ACCESSION NUMBER(S): [id number] ORDERING CLINICIAN: HARPREET DOW FINDINGS: 2 supine AP radiographs of the abdomen were obtained. No definite abnormal calcifications are seen over the kidneys or ureters. There is a nonobstructive bowel gas pattern present. Free intraperitoneal air and air-fluid levels cannot be excluded without upright or decubitus images. IMPRESSION: No definite abnormal calcifications are the kidneys or ureters. Electronically signed by: ILEANA ABRAHAM MD [facility] Vital Signs Date Time Vital Sign Value Performing Clinician Facility 05-16-2024 09:07-0400 Diastolic blood pressure 69 mm[Hg] Kena Anderson Jr., DO [facility] 05-16-2024 09:07-0400 Heart rate 60 /min Kena Anderson Jr., DO Work Phone: [facility] 05-16-2024 09:07-0400 Respiratory rate 16 /min Kena Anderson Jr., DO Work Phone: [facility] 05-16-2024 09:07-0400 SaO2% (BldA) [Mass fraction] 99 % Kena Anderson Jr., DO Work Phone: [facility] 05-16-2024 09:07-0400 Systolic blood pressure 123 mm[Hg] Kena Anderson Jr., DO Work Phone: [facility] 05-16-2024 08:57-0400 Body temperature 96.21 [degF] Kena Anderson Jr., DO Work Phone: [facility] 05-16-2024 07:09-0400 Body height 165.1 cm Kena Anderson Jr., DO Work Phone: [facility] 05-16-2024 07:09-0400 Body mass index (BMI) [Ratio] 26.63 kg/m2 Kena Anderson Jr., DO Work Phone: [facility] 05-16-2024 07:09-0400 Body weight 72.58 kg Kena Anderson Jr., DO Work Phone: [facility] 03-30-2024 14:39-0400 Body height 165.1 cm Sanford Haus DO Work Phone: [facility] 03-30-2024 14:39-0400 Body mass index (BMI) [Ratio] 26.63 kg/m2 Sanford Haus DO Work Phone: [facility] 03-30-2024 14:39-0400 Body temperature 97 [degF] Sanford Haus DO Work Phone: [facility] 03-30-2024 14:39-0400 Body weight 72.58 kg Sanford Haus DO Work Phone: [facility] 03-30-2024 14:39-0400 Diastolic blood pressure 70 mm[Hg] Sanford Haus DO Work Phone: [employer] [facility] 03-30-2024 14:39-0400 Heart rate 73 /min Sanford Haus DO Work Phone: [facility] 03-30-2024 14:39-0400 Respiratory rate 18 /min Sanford Haus DO Work Phone: [facility] 03-30-2024 14:39-0400 SaO2% (BldA) [Mass fraction] 97 % Sanford Haus DO Work Phone: [employer] [facility] 03-30-2024 14:39-0400 Systolic blood pressure 128 mm[Hg] Sanford Haus DO Work Phone: [id number] [facility] 03-27-2021 09:25-0400 Body height 162.56 cm Sanford P Haus Work Phone: [facility]wrex[facility] Work Phone: 03-27-2021 09:25-0400 Body mass index (BMI) [Ratio] 30.12 kg/m2 Sanford P Haus Work Phone: IC-Mmzxgfb-Bszhkrw Work Phone: 03-27-2021 09:25-0400 Body surface area Derived from formula 1.85 m2 Sanford P Haus Work Phone: VJ-Rdqclam-Dgbgtjm Work Phone: 03-27-2021 09:25-0400 Body weight 79.61 kg Sanford P Haus Work Phone: FT-Mfuhfvx-Lobiadg Work Phone: 03-27-2021 09:25-0400 Diastolic blood pressure 96 mm[Hg] Sanford P Haus Work Phone: LZ[facility]Vlaclig-Szufvhj Work Phone: 03-27-2021 09:25-0400 Heart rate 70 /min Sanford P Haus Work Phone: JV-Ckvojer-Dmsofqs Work Phone: 03-27-2021 09:25-0400 Systolic blood pressure 139 mm[Hg] Sanford P Haus Work Phone: NI-Bxqbdst-Uubkvyg Work Phone: 01-22-2021 08:18-0400 Body height 165.1 cm Sanford Haus DO Work Phone: [facility] 01-22-2021 08:18-0400 Body mass index (BMI) [Ratio] 28.19 kg/m2 Sanford Haus DO Work Phone: [facility] 01-22-2021 08:18-0400 Body temperature 98.29 [degF] Sanford Haus DO Work Phone: [facility] 01-22-2021 08:18-0400 Body weight 76.84 kg Sanford Haus DO Work Phone: [facility] 01-22-2021 08:18-0400 Diastolic blood pressure 76 mm[Hg] Sanford Haus DO Work Phone: [facility] 01-22-2021 08:18-0400 Heart rate 76 /min Sanford Haus DO Work Phone: [facility] 01-22-2021 08:18-0400 Respiratory rate 18 /min Sanford Haus DO Work Phone: [facility] 01-22-2021 08:18-0400 SaO2% (BldA) [Mass fraction] 96 % Sanford Haus DO Work Phone: [facility] 01-22-2021 08:18-0400 Systolic blood pressure 133 mm[Hg] Sanford Haus DO Work Phone: [facility] 12-21-2020 06:04-0400 Body height 165.1 cm Faizan Nolen DO Work Phone: [facility] 12-21-2020 06:04-0400 Body mass index (BMI) [Ratio] 27.96 kg/m2 Faizan Rogelt DO Work Phone: [facility] 12-21-2020 06:04-0400 Body temperature 98.4 [degF] Faizan Quintanagett DO Work Phone: [facility] 12-21-2020 06:04-0400 Body weight 76.2 kg Faizan Rogelt DO Work Phone: [facility] 12-21-2020 06:04-0400 Diastolic blood pressure 85 mm[Hg] Faizan Quintanagett DO Work Phone: [facility] 12-21-2020 06:04-0400 Heart rate 72 /min Faizan Rogelt DO Work Phone: [facility] 12-21-2020 06:04-0400 Respiratory rate 14 /min Faizan Rogelt DO Work Phone: [facility] 12-21-2020 06:04-0400 SaO2% (BldA) [Mass fraction] 98 % Faizan Rogelt DO Work Phone: [facility] 12-21-2020 06:04-0400 Systolic blood pressure 126 mm[Hg] Faizan Rogelt DO Work Phone: [facility] 06-25-2020 08:31-0500 BMI (Body Mass Index) 28.21 kg/m2 [facility] 06-25-2020 08:31-0500 Body Temperature 97.81 [degF] [facility] 06-25-2020 08:31-0500 Body weight 76.89 kg [facility] 06-25-2020 08:31-0500 BP Diastolic 80 mm[Hg] [facility] 06-25-2020 08:31-0500 BP Systolic 136 mm[Hg] [facility] 06-25-2020 08:31-0500 Height 165.1 cm [facility] 06-25-2020 08:31-0500 Pulse (Heart Rate) 79 /min [facility] 06-25-2020 08:31-0500 Pulse Oximetry 97 % [facility] 03-16-2020 10:48-0400 BMI (Body Mass Index) 27.66 kg/m2 [facility] 03-16-2020 10:48-0400 Body Temperature 99 [degF] [facility] 03-16-2020 10:48-0400 Body weight 75.39 kg [facility] 03-16-2020 10:48-0400 BP Diastolic 84 mm[Hg] [facility] 03-16-2020 10:48-0400 BP Systolic 126 mm[Hg] [facility] 03-16-2020 10:48-0400 Height 165.1 cm [facility] 03-16-2020 10:48-0400 Pulse (Heart Rate) 82 /min [facility] 03-16-2020 10:48-0400 Pulse Oximetry 99 % [facility] 01-18-2020 10:37-0400 BP Diastolic 82 mm[Hg] Tino [facility] 01-18-2020 10:37-0400 BP Systolic 129 mm[Hg] Tino [facility] 01-18-2020 10:37-0400 Pulse (Heart Rate) 72 /min [facility] 01-18-2020 10:37-0400 Pulse Oximetry 97 % Tino [facility] 01-18-2020 10:37-0400 Respiratory Rate 17 /min Tino [facility] 01-18-2020 07:56-0400 BMI (Body Mass Index) 29.2 kg/m2 Tino [facility] 01-18-2020 07:56-0400 Body Temperature 98.2 [degF] Tino [facility] 01-18-2020 07:56-0400 Body weight 79.61 kg [facility] 01-18-2020 07:56-0400 Height 165.1 cm [facility] 01-17-2020 15:08-0400 BMI (Body Mass Index) 29.65 kg/m2 [facility] 01-17-2020 15:08-0400 Body Temperature 99.1 [degF] [facility] Comment on above: CHECKED TWICE 01-17-2020 15:08-0400 Body weight 80.83 kg [facility] 01-17-2020 15:08-0400 BP Diastolic 88 mm[Hg] [facility] 01-17-2020 15:08-0400 BP Systolic 114 mm[Hg] [facility] 01-17-2020 15:08-0400 Height 165.1 cm [facility] 01-17-2020 15:08-0400 Pulse (Heart Rate) 68 /min [facility] 01-17-2020 15:08-0400 Pulse [facility] 98 % [facility]-17-2020 15:08-0400 Respiratory Rate 14 /min [facility] Encounters Encounter Date Encounter Type Care Provider Facility Start: 05-16-2024 ambulatory KENA ANDERSON JR, JR. [facility] Start: 05-16-2024 End: 05-16-2024 Subsequent hospital visit by physician Kena Anderson DO Work Phone: [facility] Start: 03-30-2024 End: 03-30-2024 Office outpatient visit 25 minutes Sanford P Haus DO Work Phone: [facility] Comment on above: PRATIK (generalized anx iety disorder) (Primary Dx); Depressive disorder; Chronic constipation; Screening mammogram for breast cancer; Hypercholesteremia Start: 03-30-2024 ambulatory SANFORD P HAUS [facility] Start: 03-27-2021 Office outpatient vi sit 15 minutes Sanford P Haus Work Phone: [facility] Work Phone: Start: 01-22-2021 End: 01-22-2021 Office outpatient visit 15 minutes Sanford P Haus DO Work Phone: [facility] Comment on above: PRATIK (generalized anx iety disorder) (Primary Dx); Depressive disorder; Mixed hyperlipidemia; Vitamin D deficiency; Varicose veins of both lower extremities with pain Start: 12-21-2020 End: 12-21-2020 ambulatory FAIZAN NOLEN [facility] Start: 12-21-2020 End: 12-21-2020 Office consultation new/estab patient 30 min Faizan Nolen DO Work Phone: [facility] Comment on above: Pre-operative examin ation (Primary Dx); Facial aging; Mixed hyperlipidemia; Anxiety with depression; Kidney agenesis Start: 12-21-2020 End: 12-21-2020 Preprocedural examination done Faizan Rogelt DO Work Phone: [facility] Start: 12-17-2020 End: 12-17-2020 ambulatory EDY DELGADO [facility] Start: 10-03-2020 End: 10-03-2020 Orders Only Karen Clancy Work Phone: [facility] Start: 06-25-2020 End: 06-25-2020 Office outpatient visit 15 minutes Sanford P Haus Work Phone: [facility] Comment on above: Cigarette nicotine d ependence, uncomplicated (Primary Dx); PRATIK (generalized anxiety disorder); Depressive disorder; Flu vaccine need Start: 03-16-2020 End: 03-16-2020 Office outpatient visit 25 minutes Sanford P Haus Work Phone: [facility] Comment on above: PRATIK (generalized anx iety disorder) (Primary Dx); Depressive disorder; Episodic cigarette smoking dependence; Psoriasis; Encounter to establish care with new doctor Start: 01-18-2020 End: 01-18-2020 Emergency department patient visit TINO FAN [facility] Start: 01-18-2020 End: 01-18-2020 Emergency department patient visit Tino Fan Work Phone: [facility] Comment on above: Covid-19 Virus not D etected (Primary Dx); Right ear pain; Sore throat Start: 01-17-2020 End: 01-17-2020 Office outpatient visit 15 minutes Christophe Leroy Work Phone: [facility] Comment on above: Acute pharyngitis, u nspecified etiology (Primary Dx); Throat pain in adult; Coryza; Vitamin D deficiency Start: 04-03-2019 End: 04-03-2019 Refill Christophe E Rad Work Phone: [facility] Start: 03-16-2019 End: 03-16-2019 Refill Christophe E Rad Work Phone: [facility] Start: 10-05-2018 End: 10-05-2018 Refill Christophe E Rad Work Phone: [facility] Start: 02-02-2018 Ambulatory Harpreet Mario Dow [facility] Date Procedure Procedure Detail Performing Clinician Start: 05-16-2024 Screening colonoscopy W raymond Anderson DO Work Phone: Start: 03-16-2020 Lipid 1996 panel - S shahzad or Plasma Sanford Garibay Start: 01-18-2020 COVID-19, MOLECULAR Bra dley Micheal Fan Work Phone: Augmentation mammoplasty Migdalia c P Haus Work Phone: section Sanford P Haus Work Phone: Hysterectomy Sanford P Haus Work Phone: Operation on skin [facility] P [facility] Work Phone: Plan of Treatment Date Care Activity Detail Author Start: 02-15-2029 Pneumococcal Vaccine : Ped or At-Risk (2 of 2 - PPSV23) Pneumococcal Vaccine: Ped or At-Risk (2 of 2 - PPSV23) [facility] Start: 05-16-2025 Screening for malign ant neoplasm of colon COLORECTAL CANCER SCREENING DISCUSSION [id number] Start: 03-16-2025 Fasting lipid profile LIPID SCREENIN G [facility] [id number] [facility] Start: 03-16-2025 Lipid panel LIPID SCREENING [facility] Start: 07-01-2024 End: 07-01-2024 Patient encounter procedure 07/01/2024 7:30 AM EST Office Visit [facility] [place] [address] Sanford Garibay, DO [address] [place] [phone] [facility] Start: 05-16-2024 End: 05-16-2024 Patient encounter procedure 05/16/2024 8:00 AM EDT Appointment [facility] [address] [place] [id number] Kena Anderson Jr., DO [address] [place] [address] [facility] Start: 03-30-2024 End: 03-30-2025 MG Breast - bilateral Screening MAMMO SCREENING WITH DAVID BILATERAL Imaging Routine Screening mammogram for breast cancer Expected: 03/30/2024 (Approximate), Expires: 03/30/2025 [facility] Comment on above: Expected: 03/30/2024 (Approximate), Expires: 03/30/2025 Start: 03-27-2024 COVID-19 VACCINE ( season) COVID-19 VACCINE ( season) [facility] Start: 03-27-2024 Influenza vaccination INFLUENZA VACC INE (#1) [facility] Start: 03-27-2024 Tetanus vaccination Tetanus: Every 1 0yrs [facility] Start: 2024 RSV VACCINE (1 - 1-d ose 60+ series) RSV VACCINE (1 - 1-dose 60+ series) [facility] Start: 12-08-2021 Tetanus vaccination TETANUS [facility] Start: 07-24-2021 End: 07-24-2021 Patient encounter procedure 07/24/2021 Office Visit Internal Medicine Sanford Garibay, DO [address] [place] [address] [phone] [facility] Start: 01-22-2021 End: 01-22-2022 Complete blood count with white cell differential, automated CBC, EDIF, PLATELET Lab Routine Mixed hyperlipidemia Expected: 01/22/2021, Expires: 01/22/2022 [facility] Comment on above: Expected: 01/22/2021 , Expires: 01/22/2022 Start: 01-22-2021 End: 01-22-2022 Comprehensive metabolic 2000 panel - Serum or Plasma COMPREHENSIVE METABOLIC PANEL Lab Routine Mixed hyperlipidemia Expected: 01/22/2021, Expires: 01/22/2022 [facility] Comment on above: Expected: 01/22/2021 , Expires: 01/22/2022 Start: 01-22-2021 End: 01-22-2022 LIPID PANEL W CALCULATED LDL LIPID PANEL W CALCULATED LDL Lab Routine Mixed hyperlipidemia Expected: 01/22/2021, Expires: 01/22/2022 [facility] Comment on above: Expected: 01/22/2021 , Expires: 01/22/2022 Start: 01-22-2021 End: 01-22-2022 VITAMIN D (25-HYDROXY,TOTAL) VITAMIN D (25-HYDROXY,TOTAL) Lab Routine Vitamin D deficiency Expected: 01/22/2021, Expires: 01/22/2022 [facility] Comment on above: Expected: 01/22/2021 , Expires: 01/22/2022 Start: 12-21-2020 End: 12-21-2020 Office Visit 12/21/2020 Office Visit Internal Medicine Sanford Garibay, DO [address] [place] [address] [phone] [facility] Start: 08-04-2020 Administration of he rpes zoster vaccine Zoster Vaccines (2 of 2) [facility] Start: 06-25-2020 End: 06-25-2020 Office Visit 06/25/2020 Office Visit Internal Medicine Sanford Garibay, DO [address] [place] [address] [phone] [facility] Start: 03-27-2020 Influenza vaccination [facility] Start: 02-14-2020 End: 02-14-2020 Office Visit 02/14/2020 Office Visit Internal Medicine Christophe Leroy MD [address] [place] [address] [phone] [facility] Start: 01-17-2020 End: 02-14-2020 NOVEL CORONAVIRUS LAB 1 - NASOPHARYNGEAL NOVEL CORONAVIRUS LAB 1 - NASOPHARYNGEAL Microbiology STAT Coryza Expected: 01/17/2020, Expires: 02/14/2020 [facility] Comment on above: Expected: 01/17/2020 , Expires: 02/14/2020 Start: 03-27-2019 Influenza vaccination INFLUENZA VACC INE (#1) [facility] Start: 03-27-2018 Influenza vaccination INFLUENZA VACC INE (#1) [facility] Start: 02-15-2014 Colonoscopy [facility] Start: 02-15-2014 Protein mass conc COLON CANCER SCREENING DISCUSSION [facility] Start: 02-15-2014 Screening for malign ant neoplasm of colon [facility] Start: 02-15-2014 Zoster vaccine hzv l keyanna for subcutaneous use ZOSTER (SHINGLES) VACCINE (1 of 2) [facility] Start: 02-15-2009 Colonoscopy COLORECTAL CAN CER SCREENING DISCUSSION [facility] Start: 02-15-2009 Screening for malign ant neoplasm of colon COLORECTAL CANCER SCREENING DISCUSSION [facility] Start: 2004 Fasting lipid profile LIPID SCREENIN G [facility] Start: 2004 Protein mass conc MAMMOGRAM SC REENING DISCUSSION [facility] Start: 2004 Screening for malign ant neoplasm of breast MAMMOGRAM SCREENING DISCUSSION [facility] Start: 2004 Screening mammography MAMMOGRA M SCREENING DISCUSSION [facility] Start: 02-15-1985 Screening for malign ant neoplasm of cervix [facility] Start: 02-15-1983 Third diphtheria, tetanus and acellular pertussis (DTaP) vaccination TDAP (ADULT) [facility] Start: 02-15-1982 Hepatitis C screening Hepatitis C Sc reening [facility] Start: 02-15-1982 Tetanus vaccination [facility] Start: 02-15-1979 HIV screening [facility] Start: 02-15-1977 HIV screening HIV SCREENING DISCUSSI ON [facility] Start: 02-15-1967 History and physical examination, annual for health maintenance Wellness Visit [facility] Start: 1964 Hepatitis C antibody , confirmatory test HEPATITIS C VIRUS SCREENING [facility] Start: 1964 Hepatitis C screening HEPATITI S C VIRUS SCREENING [facility] Start: 1964 Screening for malign ant neoplasm of cervix Pap Smear [facility] Start: 1964 Screening mammography [facility] Immunizations Immunization Date Immunization Notes Care Provider Keyon teresa 11-30-2020 SARS-COV-2 (COVID-19 ), Mrna, Lnp-s, Pf, 100 Mcg/ 0.5 Ml Dose MODERNA Sanford Haus DO Work Phone: [facility] 10-29-2020 SARS-COV-2 (COVID-19 ), Mrna, Lnp-s, Pf, 100 Mcg/ 0.5 Ml Dose MODERNA Sanford Haus DO Work Phone: [facility] 06-25-2020 influenza, injectabl e, quadrivalent, preservative free [facility] 06-25-2020 influenza quad vacci ne 0.5 ML Suspension Prefilled Syringe [facility] 06-25-2020 influenza virus vacc ine, unspecified formulation [facility] DO Work Phone: [facility] 07-25-2019 influenza, injectabl e, quadrivalent, preservative free [facility] 07-25-2019 pneumococcal polysaccharide vaccine, 23 valent [facility] 07-25-2019 influenza virus vacc ine, unspecified formulation [facility] 05-12-2016 influenza virus vacc ine, unspecified formulation [facility] 03-21-2012 influenza virus vacc ine, whole virus [facility] 03-21-2012 influenza virus vacc ine, unspecified formulation [facility] Payers Date Payer Category Payer Unknown [id number] 2020 Unknown [id number] 1. [id number] 2020 Unknown [id number] 2019 Unknown [id number] 2018 Unknown 2016 Unknown [id number] 1. [id number] 2016 Unknown [id number] 1. [id number] 1964 Unknown [id number] [id number] 1964 Unknown [id number] 1964 Unknown [id number] 1964 Unknown [id number] Social History Date Type Detail Facility Start: 06-03-2018 End: 03-30-2024 Tobacco smoking status NHIS Former smoker [facility] History of tobacco use Cigarette Smoker [facility] Start: 06-03-2018 End: 05-12-2024 Cigarettes smoked current (pack per day) - Reported [facility] Start: 08-19-2016 Tobacco Comment Smokes 1/3 ppd for past 5 yrs, stopped for 11 yrs before resuming. Had smoked 1 ppd for 8 yrs. [facility] Start: 1965 Sex Assigned At Not on file [facility] Start: 06-03-2018 End: 05-12-2024 Alcohol intake No [facility] Start: 01-17-2020 End: 03-30-2024 Tobacco use and exposure Never used [facility] Start: 01-17-2020 End: 05-12-2024 Alcohol intake Current non-drinker of alcohol (finding) [facility] Start: 01-18-2020 Tobacco smoking stat [email or web address] Current every day smoker [facility] Start: 01-18-2020 End: 12-21-2020 Alcohol intake Current drinker of alcohol (finding) [facility] Exposure to SARS-CoV -2 (event) Not sure [facility] Start: 08-19-2016 End: 03-30-2024 Tobacco Comment Smokes 1/3 ppd for past 5 yrs, stopped for 11 yrs before resuming. Had smoked 1 ppd for 8 yrs. [facility] History of tobacco use Current smoker [facility] Gender identity Identifies as fe male gender (finding) [facility] Clinical Notes 03-27-2016 to 05-16-2024 Rebeka Espinosa RN - 05/16/2024 9:20 AM Roxie Espinosa RN - 05/16/2024 9:10 AM Roxie Espinosa RN - 05/16/2024 9:05 AM Roxie Espinosa RN - 05/16/2024 9:03 AM EDTPatient Instructions Note Date & Type Note Facility 05-16-2024 Nurse Note Pt discharged with all belongings and paperwork Pt up to dress, denies dizziness Discharge instructions reviewed with pt, pt verbalizes understanding, copies of AVS and instructions given to pt to take home Pt to edge of cart to dangle legs over side of cart, warm blanket draped over pt shoulders Dr Anderson in [place] speaking to pt Pt ride called Pt has glasses back on, pt sipping coffee and eating cookies and tolerating well, pt denies difficulty swallowing Pt turned to back, HOB 60 degrees Pt to recovery bay 2, pt lying on left side, HOB 30 degrees, pt remains sedated, no visible distress noted documented in this encounter [facility] 05-16-2024 Nurse Surgical operation note Pt discharged with all belongings and paperwork T [facility] 05-16-2024 Nurse Surgical operation note Pt up to dress, denies dizziness T [facility] 05-16-2024 Nurse Surgical operation note Discharge instructions reviewed with pt, pt verbalizes understanding, copies of AVS and instructions given to pt to take home T [facility] 05-16-2024 Nurse Surgical operation note Pt to edge of cart to dangle legs over side of cart, warm blanket draped over pt shoulders [facility] 05-16-2024 Nurse Surgical operation note Dr Anderson in [place] speaking to pt T [facility] 05-16-2024 Nurse Surgical operation note Pt ride called [facility] 05-16-2024 Nurse Surgical operation note Pt has glasses back on, pt sipping coffee and eating cookies and tolerating well, pt denies difficulty swallowing T [facility] 05-16-2024 Nurse Surgical operation note Pt turned to back, HOB 60 degrees [facility] 05-16-2024 Nurse Surgical operation note Pt to recovery bay 2, pt lying on left side, HOB 30 degrees, pt remains sedated, no visible distress noted [facility] 05-16-2024 Nurse Note See anesthesia record for all meds and vitals. [facility] 05-16-2024 Miscellaneous Notes See anesthesia record for all meds and vitals. documented in this encounter [facility] 03-30-2024 History of Present illness Narrative Subjective History of Present Illness Chief Complaint Patient presents with Constipation Patient is here today after moving to [place] for a few years and moving back here in December. Patient was a previous patient before moving away. Patient has struggled with constipation for several years. Last colonoscopy was at 49 years and is inquiring as to whether she is due for another one since turning 59. Anxiety Patient has anxiety and feels that since moving back has been a little more anxious, with just looking for a job and the pressures that come along with that. Patient feels that Fluoxetine 10 mg and Buspirone PRN helps to control the symptoms. Esophageal Reflux Patient is here today to follow up on acid reflux. Patient takes Omeprazole 20 mg daily and it seems to help with heartburn and acid reflux. Objective Review of Systems Constitutional: Negative for activity change, chills and fever. HENT: Negative for dental problem, ear pain, mouth sores, sinus pain and trouble swallowing. Eyes: Negative for discharge and visual disturbance. Respiratory: Negative for chest tightness, shortness of breath and wheezing. Cardiovascular: Negative for chest pain, palpitations and leg swelling. Gastrointestinal: Positive for constipation. Negative for abdominal pain and nausea. Endocrine: Negative for polydipsia, polyphagia and polyuria. Genitourinary: Negative for difficulty urinating, flank pain, frequency and urgency. Musculoskeletal: Negative for arthralgias, back pain, myalgias and neck pain. Skin: Negative for color change and rash. Neurological: Negative for dizziness, syncope and light-headedness. Psychiatric/Behavioral: Negative for decreased concentration and sleep disturbance. The patient is nervous/anxious. All other systems reviewed and are negative. Psych Review of Symptoms: Elimination Symptoms: Constipation. Vitals: Blood pressure 128/70, pulse 73, temperature 97 F (36.1 C), resp. rate 18, height 1.651 m (5' 5 ), weight 72.6 kg (160 lb), SpO2 97%. Physical Exam Vitals and nursing note reviewed. HENT: Head: Normocephalic. Cardiovascular: Rate and Rhythm: Normal rate and regular rhythm. Heart sounds: No murmur heard. Pulmonary: Effort: Pulmonary effort is normal. Breath sounds: Normal breath sounds. Abdominal: General: Bowel sounds are normal. Palpations: Abdomen is soft. Tenderness: There is no abdominal tenderness. Musculoskeletal: General: No swelling. Assessment and Plan ICD-10-CM 1. PRATIK (generalized anxiety disorder) F41.1 2. Depressive disorder F32.A 3. Chronic constipation K59.09 4. Screening mammogram for breast cancer Z12.31 Referral placed to Gastroenterology, Dr. Anderson for screening colonoscopy. Obtain blood work - will need to fast for this blood draw. If lab work or other testing was ordered at your visit, please call our office ([phone]) one week after the lab draw or test to receive your results. Order given for screening mammogram. Begin Linzess (linaclotide) 72 mcg daily as needed to relieve constipation. DEVANG Edwards, was the medical microbiologist for today's note. I have performed all essential components of the history and physical exam, confirmed the diagnosis and developed a plan of care at this visit. I have reviewed the note at the visit and have added edits as appropriate to my evaluation and plan of care. Electronically signed by Sanford Garibay DO documented in this encounter [facility] 03-30-2024 Instructions Radha Anglin - 03/30/2024 2:45 PM EDT Assessment and Plan ICD-10-CM 1. PRATIK (generalized anxiety disorder) F41.1 2. Depressive disorder F32.A 3. Chronic constipation K59.09 4. Screening mammogram for breast cancer Z12.31 Referral placed to Gastroenterology, Dr. Anderson for screening colonoscopy. Obtain blood work - will need to fast for this blood draw. If lab work or other testing was ordered at your visit, please call our office ([phone]) one week after the lab draw or test to receive your results. Order given for screening mammogram. Begin Linzess (linaclotide) 72 mcg daily as needed to relieve constipation. Radha Anglin [facility], was the medical microbiologist for today's note. I have performed all essential components of the history and physical exam, confirmed the diagnosis and developed a plan of care at this visit. I have reviewed the note at the visit and have added edits as appropriate to my evaluation and plan of care. documented in this encounter [facility] 01-22-2021 History of Present illness Narrative History of Present Illness Chief Complaint Patient presents with Hyperlipidemia Pt. is here for her 6 month f/u. No new labs. Pt. does not take anything for cholesterol, diet controlled. Esophageal Reflux Pt. is here for the maintenance and treatment of acid reflux. Pt. takes Omeprazole 20 mg daily and it controls the acid reflux well. Anxiety Pt. is here for the maintenance and treatment of anxiety. Medication has helped to better control the anxiety and the patient feels that it is much better than when it started. Review of Systems Constitutional: Negative for activity change, chills and fever. HENT: Negative for dental problem, ear pain, mouth sores, sinus pain and trouble swallowing. Eyes: Negative for discharge and visual disturbance. Respiratory: Negative for chest tightness, shortness of breath and wheezing. Cardiovascular: Negative for chest pain, palpitations and leg swelling. Gastrointestinal: Negative for abdominal pain and nausea. Endocrine: Negative for polydipsia, polyphagia and polyuria. Genitourinary: Negative for difficulty urinating, flank pain, frequency and urgency. Musculoskeletal: Negative for arthralgias, back pain, myalgias and neck pain. Skin: Negative for color change and rash. Neurological: Negative for dizziness, syncope and light-headedness. Psychiatric/Behavioral: Negative for decreased concentration and sleep disturbance. All other systems reviewed and are negative. Vitals: Blood pressure 133/76, pulse 76, temperature 98.3 F (36.8 C), resp. rate 18, height 1.651 m (5' 5 ), weight 76.8 kg (169 lb 6.4 oz), SpO2 96 %. Physical Exam Vitals and nursing note reviewed. HENT: Head: Normocephalic. Cardiovascular: Rate and Rhythm: Normal rate and regular rhythm. Heart sounds: No murmur heard. Pulmonary: Effort: Pulmonary effort is normal. Breath sounds: Normal breath sounds. Abdominal: General: Bowel sounds are normal. Palpations: Abdomen is soft. Tenderness: There is no abdominal tenderness. Musculoskeletal: General: No swelling. Assessment and Plan ICD-10-CM 1. PRATIK (generalized anxiety disorder) F41.1 FLUoxetine 10 MG capsule 2. Depressive disorder F32.9 FLUoxetine 10 MG capsule 3. Mixed hyperlipidemia E78.2 CBC, EDIF, PLATELET COMPREHENSIVE METABOLIC PANEL LIPID PANEL W CALCULATED LDL 4. Vitamin D deficiency E55.9 VITAMIN D (25-HYDROXY,TOTAL) Obtain lab work prior to next office visit -will need to fast for this lab draw. If lab work or other testing was ordered at your visit, please call our office ([phone]) one week after the lab draw or test to receive your results. She will get her mammogram and Pap evaluation next month. Can wear compression stocking during the day to help with varicose veins. Can remove in the evening. Have also discussed possible Clear Vein procedure for the future. DEVANG Edwards, was the scribe for today's note. I have performed all essential components of the history and physical exam. I have confirmed the diagnosis and developed a plan of care at this visit. I have reviewed the note following the visit and have added edits as appropriate to my evaluation and plan of care. Electronically signed by Sanford Garibay DO documented in this encounter [facility] 01-22-2021 RADHA Antoine - 01/22/2021 8:00 AM EDT Assessment and Plan ICD-10-CM 1. PRATIK (generalized anxiety disorder) F41.1 FLUoxetine 10 MG capsule 2. Depressive disorder F32.9 FLUoxetine 10 MG capsule 3. Mixed hyperlipidemia E78.2 CBC, EDIF, PLATELET COMPREHENSIVE METABOLIC PANEL LIPID PANEL W CALCULATED LDL 4. Vitamin D deficiency E55.9 VITAMIN D (25-HYDROXY,TOTAL) Obtain lab work prior to next office visit -will need to fast for this lab draw. If lab work or other testing was ordered at your visit, please call our office ([phone]) one week after the lab draw or test to receive your results. She will get her mammogram and Pap evaluation next month. Can wear compression stocking during the day to help with varicose veins. Can remove in the evening. Have also discussed possible Clear Vein procedure for the future. DEVANG Edwards, was the scribe for today's note. I have performed all essential components of the history and physical exam. I have confirmed the diagnosis and developed a plan of care at this visit. I have reviewed the note following the visit and have added edits as appropriate to my evaluation and plan of care. Electronically signed by Sanford Garibay DO documented in this encounter [facility] 12-21-2020 History of Present illness Narrative HISTORY Patient Name: Silva Fuentes Date of Exam: 12/21/2020 Date of Surgery: 12/21/20 Diagnosis: facial aging Reason for visit/consultation: Medical risk stratification for same day surgery History of current illness: Silva Fuentes is a 55 y.o. female who presents for preoperative medical risk stratification prior to eye surgery at the request of Dr. Garcia who will be performing rhytidectomy. Her medical conditions include: Congenital absences of one kidney - kidney function reportedly normal, specialist gave her ciprofloxacin to take starting 2 days before surgery Anxiety, depression - stable on medication Hyperlipidemia - reportedly improved with lifestyle modifications, not on statin therapy Patient Active Problem List Diagnosis Depressive disorder PRATIK (Generalized Anxiety Disorder) Kidney agenesis Esophageal dysphagia Peptic reflux disease Mixed hyperlipidemia Past Medical History: Diagnosis Date Anxiety and depression Congenital absence of one kidney Type of anesthesia: Sedation Anesthesia History: Yes, without complications Past Surgical History: Procedure Laterality Date HYSTERECTOMY (CERVIX REMOVED) Allergies Allergen Reactions Meperidine Unknown Review of Systems Constitutional: Negative for chills, diaphoresis, fatigue, fever and unexpected weight change. HENT: Negative for nosebleeds and sore throat. Eyes: Negative for visual disturbance. Respiratory: Negative for cough, chest tightness, shortness of breath and wheezing. Cardiovascular: Negative for chest pain, palpitations and leg swelling. Gastrointestinal: Negative for abdominal pain, blood in stool, diarrhea and nausea. Genitourinary: Negative for decreased urine volume, difficulty urinating and hematuria. Skin: Negative for color change and rash. Neurological: Negative for dizziness, weakness, light-headedness, numbness and headaches. Hematological: Does not bruise/bleed easily. Psychiatric/Behavioral: Negative for confusion. Social History Social History Tobacco Use Smoking status: Former Smoker Smokeless tobacco: Never Used Substance Use Topics Alcohol use: Yes Social History Substance and Sexual Activity Drug Use Never Marital Status: History reviewed. No pertinent family history. Current Outpatient Medications Medication Sig Dispense Refill buPROPion (WELLBUTRIN SR) 150 MG 12 hr tablet TAKE 1 TABLET DAILY busPIRone (BUSPAR) 7.5 MG tablet TAKE 1 TABLET EVERY 12 HOURS NEEDED ciprofloxacin HCl (CIPRO) 250 MG tablet Take 250 mg by mouth as needed For kidney prevention . FLUoxetine (PROZAC) 10 MG capsule Take 10 mg by mouth daily . No current facility-administered medications for this visit. PHYSICAL Patient Name: Silva Fuentes Age: 55 y.o. BP 126/85 Pulse 72 Temp 98.4 F (36.9 C) Resp 14 Ht 5' 5 Wt 76.2 kg (168 lb) SpO2 98% BMI 27.96 kg/m Physical Exam General: Alert, cooperative, well appearing, in no apparent distress. Head: Head is symmetric, normocephalic without evidence of trauma or deformity. Eyes: The extra-ocular movements are intact. The lids are without swelling, lesions, or drainage. Neck: Full range of motion. There is no palpable cervical adenopathy or masses. No carotid bruits. CV: The heart sounds are regular in rate and rhythm. There is a normal S1 and S2. There or no murmurs, rubs, or gallops. Distal pulses are intact and equal. Lungs: Inspiratory and expiratory efforts are full and unlabored. Lung sounds are clear and equal to auscultation throughout all lung almaraz without wheezing, rales, or rhonchi. GI: The abdomen is soft and nontender. Bowel sounds are present in all 4 quadrants. There is no hepatosplenomegaly or other masses. There is no rebound or guarding. Musculoskeletal: Normal gait. No cervical, thoracic, or lumbar midline or paraspinal tenderness. Neuro: Alert and oriented x 3. Cranial Nerves intact grossly. Sensation intact to light touch in the upper and lower extremities bilaterally. Motor strength intact grossly. Gait: Normal Extremities: There is no clubbing, cyanosis, or edema. Peripheral pulses are 2+ equal and symmetrical. Skin: Warm and dry without rash. EKG Results: Not indicated No results found for this visit on 12/21/20. IMPRESSION/PLAN: 55 y.o. female s/p hysterectomy being seen today for preoperative medical risk stratification for same-day eye surgery at the request of Dr. Garcia. 1. Pre-operative examination 2. Facial aging 3. Mixed hyperlipidemia 4. Anxiety with depression 5. Kidney agenesis Risk factors for surgery include: Age HLD Kidney agenesis, with normal renal function Anxiety, depression Patient is at higher risk for falls due to vision impairment- fall risk precautions were discussed with patient including turning on lights and securing carpet edges. Preoperative recommendations: I reviewed the patient's pertinent medical history and medications. No additional recommendations or changes are warranted prior to her scheduled surgery. Risk Assessment: The patient is currently in a medically optimal state and the risk of surgery is acceptable at this time. Questions regarding her medical issues were answered and discussed. Postoperative recommendations: Patient was instructed to continue her current medical regimen following surgery, unless instructed otherwise by her surgeon. The patient will follow up with her PCP for any additional medical concerns. This patient has an acceptable cardiac risk for the intended procedure, it is my professional opinion that the patient does not have any medical condition at this present time that significantly increase the risk for an adverse outcome. Thank you for the opportunity to evaluate your patient. Please feel free to contact our office with any questions. A copy of this evaluation was provided to the referring physician. Faizan Nolen D.O. Family Medicine / Sports Medicine [facility] documented in this encounter [facility] 03-27-2016 History of Present illness Narrative Patient is here for yearly f/u for hx of UTI'S. No recent infections. She has Pyridium and Cipro on hand which is helpful. Chronic LUT'S sx are mild and stable. Denies urgency and frequency. Denies dysuria. Denies hematuria. Nocturia x1. No medication for LUT'S. Hx of congenital atrophied kidney. No recent imaging. chronic hx of microhematuria. she did have a negative work up in the past...last cysto was at least 5 years ago. [id number] Work Phone: Evaluation note Diagnosis Pre-operative examination- Primary Unspecified pre-operative examination Facial aging Mixed hyperlipidemia Anxiety with depression Kidney agenesis [facility] Diagnosis PRATIK (generalized anxiety disorder)- Primary Generalized anxiety disorder Depressive disorder Depressive disorder, not elsewhere classified Mixed hyperlipidemia Vitamin D deficiency Unspecified vitamin D deficiency Varicose veins of both lower extremities with pain Varicose veins of lower extremities with other complications [facility] Diagnosis PRATIK (generalized anxiety disorder)- Primary Generalized anxiety disorder Depressive disorder Depressive disorder, not elsewhere classified Chronic constipation Unspecified constipation Screening mammogram for breast cancer Hypercholesteremia Pure hypercholesterolemia [facility] for the chronically ill note* Diagnosis Encounter for screening colonoscopy Special screening for malignant neoplasms, colon [facility] Consultation (Routine) - Open Specialty Diagnoses / Procedures Referred By Temo t Referred To Contact Gastroenterology Diagnoses PRATIK (generalized anxiety disorder) Sanford Garibay DO [address] [place] [id number] Kena Anderson Jr., DO [address] [place] [address] Referral ID Status Reason Start Date Expiration Date Visits Re quested Visits Authorized [id number] Open 03/30/2024 04/24/2025 1 1 [facility] Summary Purpose Family History Unknown Family Member Name Dates Details Family history of hypertensi on: Sibling(V17.49, Z82.49) Status:Active Advance Directives Documents on File Type Date Recorded Patient Roll Hauler Expl anation Advance Directives and Livin g Will 01/18/2020 8:18 AM Documents on File Type Date Recorded Patient Roll Hauler Expl anation Advance Directives/Living Will 11/29/2020 3:05 PM Living Will 11/29/20 Advance Directives/Living Will 11/29/2020 3:07 PM Durable Power of Mining Helper 11/29/20 Documents on File Type Date Recorded Patient Roll Hauler Expl anation Advance Directives/Living Will 11/29/2020 3:07 PM Durable Power of Mining Helper 11/29/20 Advance Directives/Living Will 11/29/2020 3:05 PM Living Will 11/29/20 History of Present Illness * Christophe Leroy MD - 01/17/2020 2:30 PM EDT Chief Complaint: Chief Complaint Patient presents with Mass swollen glands, plugged ears History of Present Illness Silva Fuentes is a 54 y.o. female who presents today with the following concerns: Mass (swollen glands, plugged ears) Patient is in the office today for evaluation of bilateral toe pain with the lymphadenitis as well as a bilateral year fullness. She has no fever documented at home. Recently she has been swimming inher friend's pool. She does work in [place] Patient has not had any contact with the Covid positive patients. Patient has no febrile illness. She has no abnormal taste or loss of sense of smell. Patient has no chest pain. She has no shortness of breath. Patient has no wheezing. Heart:Patient denies any exertional chest pain, dyspnea, palpitations, syncope, orthopnea, edema orparoxysmal nocturnal dyspnea. Lung:The patient denies cough, chest pain, dyspnea, wheezing or hemoptysis. Abdomen: The patient denies abdominal or flank pain, anorexia, nausea or vomiting, dysphagia, change in bowel habits or black or bloody stools or weight loss. Extremities:Patient denies low back pain or painful or reduced range of motion of the back. Problems discussed today also include: problems updated.HPI comments may also be noted in 'Overview' section on the Problem List and appear at the end of this note under problem summary. Past Medical History Includes Toans PRATIK (generalized anxiety disorder); Depressive disorder; Peptic reflux disease; Mixed hyperlipidemia; Kidney agenesis; Abnormal kidney function; Esophageal dysphagia; and Esophageal stricture on their problem list. Reviewed today. Medications on arrival 01/17/2020 Outpatient Medications Prior to Visit Medication Sig Dispense Refill BUPROPION 150 MG tablet SR TAKE 1 TABLET DAILY 90 tablet 4 BUSPIRONE HCL 7.5 MG Tab TAKE 1 TABLET EVERY 12 HOURS NEEDED 180 tablet [address] omepraz[address] capsule Take 1 capsule by mouth at bedtime. For 6 weeks 30 capsule 3 tretinoin (RETIN-A) 0.025 % Cream Reported on 09/08/2016 CALCIUM PO 1 by mouth every day. Cholecalciferol (VITAMIN D3) 2000 units Tab take 2,000 Units by mouth daily.. MISC NATURAL PRODUCTS PO OxyBowel 1 by mouth every day. Multiple Vitamin (MULTIVITAMIN) Cap take 1 capsule by mouth daily.. [place] 3-6-9 Fatty Acids (OMEGA 3-6-9 COMPLEX PO) 1 by mouth every day. tretinoin 0.025 % Cream Reported on 09/08/2016 No facility-administered medications prior to visit. Nurse Note: Review of Systems Constitutional: Negative. HENT: Positive for sore throat and trouble swallowing. Negative for congestion. Throat is swollen versus sore Eyes: Negative for pain. Respiratory: Negative for cough, chest tightness, shortness of breath and wheezing. Cardiovascular: Negative for chest pain. Gastrointestinal: Negative for abdominal pain. Endocrine: Negative. Genitourinary: Negative. Musculoskeletal: Negative for back pain. Skin: Negative. Allergic/Immunologic: Negative for environmental allergies and food allergies. Neurological: Negative. Hematological: Does not bruise/bleed easily. Psychiatric/Behavioral: Negative. Nursing Assessment: Pt presents with c/o of swollen glands, plugged ears. Pt states she was swimmerover the weekend. Pt has not been seen in two yrs. Allergies She is allergic to demerol hcl [meperidine]. Family History Her family history includes Lipid Disorder in her mother; Lung Cancer in her father. Social History She reports that she has quit smoking. Her smoking use included cigarettes. She has a 1.50 pack-year smoking history. She has never used smokeless tobacco. She reports that she does not drink alcoholor use drugs. Physical Exam Blood pressure 114/88, pulse 68, temperature 99.1 F (37.3 C), temperature source Temporal, resp. rate 14, height 1.651 m (5' 5 ), weight 80.8 kg (178 lb 3.2 oz), SpO2 98 %., Body mass index is 29.65 kg/m . Constitutional: She appears Stable, fatigued. Head: Normocephalic and atraumatic. Eyes: Reactive pupils, no conjunctival injection, no jaundice. Ears: Normal TMs, normal external ear and ear canal. Nose: No nasal congestion/bogginess, no sinus tenderness Mouth/Throat: Bilateral tonsillar area is erythematous. She does have cryptic abscess formation. Isalso bilateral submandibular lymph nodes which are palpable and tender. No sinus tenderness. Neck: Neck supple. Thyroid not enlarged. No anterior cervical LAD. Cardiovascular: No carotid bruits. Heart with regular rhythm, normal heart sounds. Pulmonary/Chest: Effort normal, breath sounds normal. Musculoskeletal: No joint deformity of hands, neck, or knees noted. Good ROM of all visible joints during exam. Gait & balance normal on observation within exam room. Psychiatric: Mood and affect normal. Judgment normal. Ordered thought content. Assessment/Plan Problem List Items Addressed This Visit None Visit Diagnoses Acute pharyngitis, unspecified etiology - Primary; patient does have acute pharyngitis suspected bacterial versus virus. Will have her laboratory evaluation including CBC, NOVEL jernigan virus. patientwill be placed on Augmentin therapy at this time. Relevant Orders CBC, EDIF, PLATELET Throat pain in adult ; Augmentin therapy. 75/120 MG by mouth twice a day with meals for 7 days. Patient also will be on Clarinex therapy. Relevant Orders CBC, EDIF, PLATELET Coryza ; patient will have a viral testing. Increase fluids. We will follow clinically. Relevant Orders NOVEL CORONAVIRUS LAB 1 - NASOPHARYNGEAL Vitamin D deficiency ; vitamin D therapy recommended. Continue current regimen. Discontinued Medications: Medications Discontinued During This Encounter Medication Reason tretinoin 0.025 % Cream Duplicate (suppress cancel msg) Requested Prescriptions Signed Prescriptions Disp Refills amoxicillin-clavulanate 875-125 MG tablet 14 tablet 0 Sig: Take 1 tablet by mouth 2 times daily with meals for 7 days. desloratadine (Clarinex) 5 MG tablet 10 tablet 0 Sig: Take 1 tablet by mouth daily. There are no Patient Instructions on file for this visit. * Igor Vikki - 01/17/2020 2:30 PM EDT Nurse Note: Review of Systems Constitutional: Negative. HENT: Positive for sore throat and trouble swallowing. Negative for congestion. Throat is swollen versus sore Eyes: Negative for pain. Respiratory: Negative for cough, chest tightness, shortness of breath and wheezing. Cardiovascular: Negative for chest pain. Gastrointestinal: Negative for abdominal pain. Endocrine: Negative. Genitourinary: Negative. Musculoskeletal: Negative for back pain. Skin: Negative. Allergic/Immunologic: Negative for environmental allergies and food allergies. Neurological: Negative. Hematological: Does not bruise/bleed easily. Psychiatric/Behavioral: Negative. Nursing Assessment: Pt presents with c/o of swollen glands, plugged ears. Pt states she was swimmerover the weekend. Pt has not been seen in two yrs. Physical Exam documented in this encounter* Sanford Garibay DO - 03/16/2020 10:30 AM EDT History of Present Illness Patient presents with New Patient Here to establish as a new patient from Dr. Leroy. Would like to discuss about her anxiety, since this past July and taking wellbutrin and buspar, does not feel they are helping. Is going through adivorce at this time. Review of Systems Constitutional: Negative for activity change, chills and fever. HENT: Negative for dental problem, ear pain, mouth sores, sinus pain and trouble swallowing. Eyes: Negative for discharge and visual disturbance. Respiratory: Negative for chest tightness, shortness of breath and wheezing. Cardiovascular: Negative for chest pain, palpitations and leg swelling. Gastrointestinal: Negative for abdominal pain and nausea. Endocrine: Negative for polydipsia, polyphagia and polyuria. Genitourinary: Negative for difficulty urinating, flank pain, frequency and urgency. Musculoskeletal: Negative for arthralgias, back pain, myalgias and neck pain. Skin: Negative for color change and rash. Neurological: Negative for dizziness, syncope and light-headedness. Psychiatric/Behavioral: Positive for dysphoric mood. Negative for decreased concentration and sleepdisturbance. The patient is nervous/anxious. All other systems reviewed and are negative. Vitals: Blood pressure 126/84, pulse 82, temperature 99 F (37.2 C), temperature source Oral, height1.651 m (5' 5 ), weight 75.4 kg (166 lb 3.2 oz), SpO2 99 %. Physical Exam Vitals signs and nursing note reviewed. Constitutional: Appearance: She is well-developed. HENT: Right Ear: External ear normal. Left Ear: External ear normal. Eyes: Conjunctiva/sclera: Conjunctivae normal. Pupils: Pupils are equal, round, and reactive to light. Neck: Musculoskeletal: Normal range of motion. Cardiovascular: Rate and Rhythm: Normal rate and regular rhythm. Heart sounds: Normal heart sounds. No murmur. No friction rub. No gallop. Pulmonary: Effort: Pulmonary effort is normal. No respiratory distress. Breath sounds: Normal breath sounds. Abdominal: General: Bowel sounds are normal. There is no distension. Palpations: Abdomen is soft. Tenderness: There is no abdominal tenderness. Musculoskeletal: Normal range of motion. Skin: General: Skin is warm and dry. Coloration: Skin is not jaundiced. Findings: No erythema or rash. Neurological: Mental Status: She is alert and oriented to person, place, and time. Deep Tendon Reflexes: Reflexes are normal and symmetric. Psychiatric: Mood and Affect: Mood normal. Behavior: Behavior normal. Judgment: Judgment normal. Neurologic Exam Mental Status Oriented to person, place, and time. Cranial Nerves CN III, IV, Pupils are equal, round, and reactive to light. Assessment and Plan ICD-10-CM 1. PRATIK (generalized anxiety disorder) F41.1 FLUoxetine 10 MG capsule 2. Depressive disorder F32.9 FLUoxetine 10 MG capsule 3. Episodic cigarette smoking dependence F17.210 4. Encounter to establish care with new doctor Z76.89 CBC, EDIF, PLATELET COMPREHENSIVE METABOLIC PANEL LIPID PANEL W CALCULATED LDL TSH W/FT4 REFLEX 5. Psoriasis L40.9 Continue Wellbutrin 150 mg once daily. Discontinue Buspar (buspirone). Begin Prozac (fluoxetine) 10 mg once daily. Allow a few weeks to see any effect from the medication. I stated if she feels as though food is getting stuck or has trouble swallowing, we would need to switch her medication in light of her history of esophageal stricture. For now, I have recommended that she use Pepcid 20 mg twice daily for reflux symptoms. Obtain lab work - will need to fast for this lab draw. If lab work or other testing was ordered at your visit, please call our office ([phone]) one week after the lab draw or test to receive your results. Begin clobetasol cream to help heal psoriasis. Radha Jiang [facility], was the scribe for today's note. I have performed all essential components of the history and physical exam. I have confirmed the diagnosis and developed a plan of care at this visit. I have reviewed the note following the visit and have added edits as appropriate to my evaluation and plan of care. Electronically signed by Sanford Garibay DO documented in this encounter* Sanford Garibay DO - 06/25/2020 8:30 AM EST History of Present Illness Patient presents with Anxiety Here for 3 month follow up on generalized anxiety disorder. New scripts wellbutrin and prozac, states doing good on them and not having anxiety with the prozac. Taking them daily as ordered. Review of Systems Constitutional: Negative for activity change, chills and fever. HENT: Negative for dental problem, ear pain, mouth sores, sinus pain and trouble swallowing. Eyes: Negative for discharge and visual disturbance. Respiratory: Negative for chest tightness, shortness of breath and wheezing. Cardiovascular: Negative for chest pain, palpitations and leg swelling. Gastrointestinal: Negative for abdominal pain and nausea. Endocrine: Negative for polydipsia, polyphagia and polyuria. Genitourinary: Negative for difficulty urinating, flank pain, frequency and urgency. Musculoskeletal: Negative for arthralgias, back pain, myalgias and neck pain. Skin: Negative for color change and rash. Neurological: Negative for dizziness, syncope and light-headedness. Psychiatric/Behavioral: Negative for decreased concentration and sleep disturbance. The patient is nervous/anxious. All other systems reviewed and are negative. Vitals: Blood pressure 136/80, pulse 79, temperature 97.8 F (36.6 C), temperature source Temporal, height 1.651 m (5' 5 ), weight 76.9 kg (169 lb 8 oz), SpO2 97 %. Physical Exam Vitals signs and nursing note reviewed. Constitutional: Appearance: She is well-developed. HENT: Right Ear: External ear normal. Left Ear: External ear normal. Eyes: Conjunctiva/sclera: Conjunctivae normal. Pupils: Pupils are equal, round, and reactive to light. Neck: Musculoskeletal: Normal range of motion. Cardiovascular: Rate and Rhythm: Normal rate and regular rhythm. Heart sounds: Normal heart sounds. No murmur. No friction rub. No gallop. Pulmonary: Effort: Pulmonary effort is normal. No respiratory distress. Breath sounds: Normal breath sounds. Abdominal: General: Bowel sounds are normal. There is no distension. Palpations: Abdomen is soft. Tenderness: There is no abdominal tenderness. Musculoskeletal: Normal range of motion. Skin: General: Skin is warm and dry. Coloration: Skin is not jaundiced. Findings: No erythema or rash. Neurological: Mental Status: She is alert and oriented to person, place, and time. Deep Tendon Reflexes: Reflexes are normal and symmetric. Psychiatric: Mood and Affect: Mood normal. Behavior: Behavior normal. Judgment: Judgment normal. Neurologic Exam Mental Status Oriented to person, place, and time. Cranial Nerves CN III, IV, Pupils are equal, round, and reactive to light. Assessment and Plan ICD-10-CM 1. Cigarette nicotine dependence, uncomplicated F17.210 2. PRATIK (generalized anxiety disorder) F41.1 FLUoxetine 10 MG capsule 3. Depressive disorder F32.9 FLUoxetine 10 MG capsule 4. Flu vaccine need Z23 influenza quad vaccine 0.5 ML Suspension Prefilled Syringe FLU VACCINE SINGLE DOSE QUADRIVALENT Darienne Kristopher, [facility], was the scribe for today's note. I have performed all essential components of the history and physical exam. I have confirmed the diagnosis and developed a plan of care at this visit. I have reviewed the note following the visit and have added edits as appropriate to my evaluation and plan of care. Electronically signed by Sanford Garibay DO documented in this encounter Assessments Diagnosis Acute pharyngitis, unspecified etiology Throat pain in adult Coryza Acute nasopharyngitis (common cold) Vitamin D deficiency Unspecified vitamin D deficiency Diagnosis Covid-19 Virus not Detected Right ear pain Unspecified otalgia Sore throat Acute pharyngitis Diagnosis PRATIK (generalized anxiety disorder)- Primary Generalized anxiety disorder Depressive disorder Depressive disorder, not elsewhere classified Episodic cigarette smoking dependence Psoriasis Other psoriasis Encounter to establish care with new doctor Diagnosis Cigarette nicotine dependence, uncomplicated- Primary Tobacco use disorder PRATIK (generalized anxiety disorder) Generalized anxiety disorder Depressive disorder Depressive disorder, not elsewhere classified Flu vaccine need Need for prophylactic vaccination and inoculation against influenza Discharge Instructions * Instructions* Tino Fan MD - 01/18/2020 Thank you for choosing us for your Emergency Care! You have undergone an emergency evaluation today. This is not a substitute for a comprehensive physical exam by a primary care provider. Please follow up with your primary care physician. There are often findings on laboratory evaluation and/or radiographic studies (x-rays, ct) that require follow up and further testing, but are not related to your emergency condition today Please follow up with your family doctor or one of your choosing. You may find a provider through the [facility] Physician Referral Service by calling [phone] ([phone]) or by visiting [email or web address] Seek medical attention immediately if you have worsening symptoms or other concerns. Silva, Thank You for choosing us for your Emergency Care! * Attachments The following attachments cannot be sent through Care Everywhere. * Sore Throat (Hong Konger) documented in this encounter Instructions * Patient Instructions* RADHA ANGLIN - 03/16/2020 10:30 AM EDT Assessment and Plan ICD-10-CM 1. PRATIK (generalized anxiety disorder) F41.1 FLUoxetine 10 MG capsule 2. Depressive disorder F32.9 FLUoxetine 10 MG capsule 3. Episodic cigarette smoking dependence F17.210 4. Encounter to establish care with new doctor Z76.89 CBC, EDIF, PLATELET COMPREHENSIVE METABOLIC PANEL LIPID PANEL W CALCULATED LDL TSH W/FT4 REFLEX 5. Psoriasis L40.9 Continue Wellbutrin 150 mg once daily. Discontinue Buspar (buspirone). Begin Prozac (fluoxetine) 10 mg once daily. Allow a few weeks to see any effect from the medication. I stated if she feels as though food is getting stuck or has trouble swallowing, we would need to switch her medication in light of her history of esophageal stricture. For now, I have recommended that she use Pepcid 20 mg twice daily for reflux symptoms. Obtain lab work - will need to fast for this lab draw. If lab work or other testing was ordered at your visit, please call our office ([phone]) one week after the lab draw or test to receive your results. Begin clobetasol cream to help heal psoriasis. DEVANG Camacho, was the scribe for today's note. I have performed all essential components of the history and physical exam. I have confirmed the diagnosis and developed a plan of care at this visit. I have reviewed the note following the visit and have added edits as appropriate to my evaluation and plan of care. documented in this encounter* Patient Instructions* RADHA ANGLIN - 06/25/2020 8:30 AM EST Assessment and Plan ICD-10-CM 1. Cigarette nicotine dependence, uncomplicated F17.210 2. PRATIK (generalized anxiety disorder) F41.1 FLUoxetine 10 MG capsule 3. Depressive disorder F32.9 FLUoxetine 10 MG capsule 4. Flu vaccine need Z23 influenza quad vaccine 0.5 ML Suspension Prefilled Syringe FLU VACCINE SINGLE DOSE QUADRIVALENT DEVANG Edwards, was the scribe for today's note. I have performed all essential components of the history and physical exam. I have confirmed the diagnosis and developed a plan of care at this visit. I have reviewed the note following the visit and have added edits as appropriate to my evaluation and plan of care. documented in this encounter Chief Complaint 1 YEAR F/U Reason for Referral Specialty Diagnoses / Procedures Referred By Contmiki t Referred To Contact Diagnoses Encounter for screening colonoscopy Procedures SCREENING COLONOSCOPY IN COLONOSCOPY FLX DX W/COLLJ SPEC WHEN PFRMD Vania Pena, Kena Chase DO [address] [place] [address] Referral ID Status Reason Start Date Expiration Date Visits Re quested Visits Authorized [id number] Closed 04/08/2024 05/03/2025 1 1 Additional Source Comments INFORMATION SOURCE (unrecogn ized section and content) DATE CREATED AUTHOR 02/02/2018 [facility] DATE CREATED AUTHOR AUTHOR'S ORGANIZ ATION 01/02/2020 [facility] DATE CREATED AUTHOR AUTHOR'S ORGANIZ ATION 12/21/2020 [facility] DATE CREATED AUTHOR AUTHOR'S ORGANIZ ATION 12/23/2020 [facility] DATE CREATED AUTHOR AUTHOR'S ORGANIZ ATION 03/28/2021 [facility] DATE CREATED AUTHOR AUTHOR'S ORGANIZ ATION 04/01/2024 [facility] DATE CREATED AUTHOR AUTHOR'S ORGANIZ ATION 05/17/2024 [facility] Reason for Visit (unrecogniz ed section and content) Reason Comments Medication Refill Reason Comments Mass swollen glands, plug ged ears Reason Comments Sore Throat Otalgia Generalized Body Aches Reason Comments New Patient Here to establish as a new patient. Would like to discuss about her anxiety, since this past July and taking wellbutrin and buspar, does not feel they are helping. Is going through a divorce at this time. Reason Comments Anxiety Here for 3 month fol low up on generlized anxiety disorder. New scripts wellbutrin and prozac, states doing good on them and not having anxiety with the prozac. Taking them daily as ordered. Reason Comments Perioperative Medical Evaluation Reason Comments Hyperlipidemia Pt. is here for her 6 month f/u. No new labs. Pt. does not take anything for cholesterol, diet controlled. Esophageal Reflux Pt. is here for the maintenance and treatment of acid reflux. Pt. takes Omeprazole 20 mg daily and it controls the acid reflux well. Anxiety Pt. is here for the maintenance and treatment of anxiety. Medication has helped to better control the anxiety and the patient feels that it is much better than when it started. Reason Comments Constipation Patient is here toda y after moving to [place] for a few years and moving back here in December. Patient was a previous patient before moving away. Patient has struggled with constipation for several years. Last colonoscopy was at 49 years and is inquiring as to whether she is due for another one since turning 59. Anxiety Patient has anxiety and feels that since moving back has been a little more anxious, with just looking for a job and the pressures that come along with that. Patient feels that Fluoxetine 10 mg and Buspirone PRN helps to control the symptoms. Esophageal Reflux Patient is here toda y to follow up on acid reflux. Patient takes Omeprazole 20 mg daily and it seems to help with heartburn and acid reflux. Specialty Diagnoses / Procedures Referred By Temo bruno Referred To Contact Diagnoses Encounter for screening colonoscopy Procedures SCREENING COLONOSCOPY IN COLONOSCOPY FLX DX W/COLLJ SPEC WHEN PFRMD Vania Pena, Kena Chase DO [address] [place] [address] Referral ID Status Reason Start Date Expiration Date Visits Re quested Visits Authorized [id number] Closed 04/08/2024 05/03/2025 1 1 Maribel Savage RN - 01/18/2020 8:50 AM Dodie Klein RN - 01/18/2020 8:13 AM Óscar Cheney RN - 01/18/2020 7:58 AM Morro Starr RN - 01/18/2020 7:53 AM EDT ED Notes (unrecognized secti on and content) Patient denies body aches. Bed: 71 Expected date: Expected time: Means of arrival: Comments: referred to ED by PCP for covid testing. Denies any symptoms Patient reports a sore throat for the past 4 days with ear and body aches. Says she was started on amoxicillin yesterday. documented in this encounter Care Teams (unrecognized sec tion and content) Health Facilities Surveyor Relationship Specialty Start Date End Date Sanford Garibay DO [address] [place] [id number] PCP - General Internal Medicine 03/08/20 Health Facilities Surveyor Relationship Specialty Start Date End Date Sanford Garibay DO [id number] [place] [id number] PCP - General Internal Medicine 03/08/20 FOR RECORDS PERTAINING TO PATIENTS WHO ARE OR HAVE BEEN ENROLLED IN A CHEMICAL DEPENDENCY/SUBSTANCEABUSE PROGRAM, SOME INFORMATION MAY BE OMITTED. This clinical summary was aggregated from multiple sources. Caution should be exercised in using it in the provision of clinical care. This summary normalizes information from multiple sources, and as a consequence, information in this document may materially change the coding, format and clinical context of patient data. In addition, data may be omitted in some cases. CLINICAL DECISIONS SHOULD BE BASED ON THE PRIMARY CLINICAL RECORDS. [employer] provides no warranty or guarantee of the accuracy or completeness of information in this document.
== END | disposition home or self-care (01) ==
DX: Z12.31 Encounter for screening mammogram for malignant neoplasm of breast (principal)
CPT/HCPCS: 77063; 77067

== ENCOUNTER → 2024-05-26 | Outpatient (CLI) | payer OTHER, SELFPAY ==
--- NOTE | 2024-05-26 09:26 | BI_ITS ---
MAMMOGRAPHY - UNILATERAL DIAGNOSTIC: RIGHT BREAST REASON FOR EXAM: Female, 59 years old. Abnormal screening mammogram. PERTINENT HISTORY: Aunt with breast cancer. TECHNIQUE: Compression spot views of the right breast were obtained. CAD: Full Field Digital Mammography with Computer Added Detection was performed. COMPARISON: Comparison is made with prior study dated May 18, 2024. FINDINGS: Breast Composition: The breasts are heterogeneously dense, which may obscure small masses. There are no dominant masses or suspicious calcifications. No other significant abnormalities are identified. BI/DIAG MAMM W/CAD, UNILAT IMPRESSION: Negative unilateral diagnostic mammogram. Yearly followup mammogram recommended. (A) ASSESSMENT CATEGORY: BIRADS Category 1: Negative. A letter regarding these results will be sent to the patient by the facility within 30 days. Approximately 10% of breast cancers are not detected by mammography. A normal mammogram should not delay biopsy of a clinically suspicious abnormality. Electronically Signed: Maurilio Cornejo MD at 10:53 EDT ,
== END | disposition home or self-care (01) ==
LOC: OPBI 09:24
DX: N64.89 Other specified disorders of breast (principal)
CPT/HCPCS: 77065